=== PATIENT | male | born 1945 | race Caucasian/White ===

== ENCOUNTER → 2017-08-12 09:39 | Outpatient (CLI) | payer MEDICARE, OTHER, SELFPAY ==
[2017-08-12 09:50] LABS: Microscopic, Urine URINE MICROSCOPIC (MICROSCOPIC)
[2017-08-12 10:15] LABS: Appearance,Urine CLEAR (Clear); Bilirubin,Urine Negative (Negative); Blood, Urine Negative (Negative); Color,Urine YELLOW (Yellow); Glucose,Urine (UA) Negative (Negative); Ketones,Urine Negative (Negative); Leukocyte Esterase,Urine Negative (Negative); Nitrate,Urine Negative (Negative); PH,Urine 5.5 (5.0-8.5); Protein,Urine Negative (Negative); Specific Gravity, Urine 1.015 (1.005-1.030); Urobilinogen,Urine 0.2 EU/dl (0.2)
[2017-08-12 10:19] LABS: Basophils # 0.1 K/mm3 (0-0.2); Basophils % 1.4 % (0.1-2.0); Eosinophils # 0.1 K/mm3 (0.0-0.4); Eosinophils % 2.3 % (0.1-12.0); Hematocrit 45.5 % (42.0-52.0); Hemoglobin 14.6 g/dL (14.1-18.0); Lymphocytes % 28.5 K/mm3 (10-50); Mean Corpuscular HGB Conc 32.1 g/dL (31.8-35.4); Mean Corpuscular Hemoglobin 31.2 pg (27.0-31.2); Mean Corpuscular Volume 96.9 fl (80-94); Mean Platelet Volume 8.3 fl (7.4-10.4); Monocytes # 0.3 K/mm3 (0.1-1.0); Monocytes % 7.2 % (1.7-9.3); Neutrophils # 2.2 K/mm3 (1.8-7.8); Neutrophils % 60.7 % (37.0-80.0); Platelet Count 278 K/mm3 (142-424); Red Blood Count 4.69 M/mm3 (4.60-6.20); Red Cell Distribution Width 12.9 % (11.5-17.5); White Blood Count 3.6 K/mm3 (4.8-10.8)
--- NOTE | 2017-08-12 10:19 | XR_ITS ---
XR chest 2V HISTORY: Current smoker ITS.REASON: PRE-OP ORDERING PHYSICIAN: Fco Moreno MD PATIENT AGE: 72 years COMPARISON: None FINDINGS: The cardiomediastinal silhouette and pulmonary vascularity are within normal limits. The lungs are clear without infiltrates, suspicious nodules, or pleural effusions. No acute bony abnormalities. IMPRESSION: Negative chest, no acute finding
[2017-08-12 10:20] LABS: Bacteria,Urine Trace /lpf; Squamous Epithelial Cell,Urine Occasional #/hpf (0-5)
[2017-08-12 10:26] LABS: Activated Partial Thrombo Time 25.6 seconds (23.6-34.0); Hemoglobin A1C 5.3 % (0.0-7.0); INR 1.01 (0.9-1.1); Prothrombin Time 10.9 seconds (9.4-11.8)
[2017-08-12 10:57] LABS: Anion Gap 12.3 mEq/L (5-15); Blood Urea Nitrogen 15 mg/dL (7-18); Carbon Dioxide 28 mmol/L (21.0-32.0); Chloride 103 mmol/L (98-107); Creatinine,Serum 1.03 mg/dL (0.70-1.30); Estimated Glomerular Filt Rate 71 ml/min (>60); GFR (African American) 85 ML/MIN (>60); Glucose 99 mg/dL (74-106); Potassium 4.3 mmoL/L (3.5-5.1); Sodium 139 mmol/L (136-145)
[2017-08-13 19:24] LABS: PSA, Free 0.66 ng/mL; Prostate Specific Ag 4.2 ng/mL (0.0-4.0)
== END ==
PROVIDERS: Visit Provider Family Medicine
DX: Z01.818 Encounter for other preprocedural examination (principal); Z79.01 Long term (current) use of anticoagulants; Z79.899 Other long term (current) drug therapy; R97.20 Elevated prostate specific antigen [PSA]
CPT/HCPCS: 36415; 71046; 80048; 81001; 83036; 84153; 84154; 85025; 85610; 85730; 93005

== ENCOUNTER → 2017-08-24 12:20 | Outpatient (CLI) | payer MEDICARE, OTHER, SELFPAY ==
--- NOTE | 2017-08-24 12:25 | CA_ITS ---
PROCEDURE: 2-D M-mode and color Doppler study INDICATIONS FOR THE TEST: Chest pain COPD Heart Murmur Tobacco Smoking Palpitations Fatigue Syncope Edema Hypertension Diabetes Mellitus Rheumatic Fever SOB PINO+Obesity Hyperlipidemia+ Family History HD Additional History LBBB, pre-op clearance total hip replacement right side scheduled for 08/30/17 PATIENT INFORMATION HEIGHT: 70 WEIGHT: 178 GENDER: Male B/P:124/82 2-D/M-MODE INTERPRETATION: 2-D MEASUREMENTS OBSERVED VALUES IN CMS Right Ventricular Dimension (RVDd) 1.5 Interventricular Septum (Thickness)(IVsd) 0.9 Left Ventricular Internal Dimensions(LVIDd) 5.0 Left Ventricular Posterior Wall (Thickness)(LVPWd) 0.9 Aortic Root 3.4 Aortic Cusp Separation 2.3 Left Atrial Dimensions (LAD) 3.3 2D 1. Left atrium is mildly enlarged, left ventricle is normal size, mild concentric left ventricular hypertrophy, visually estimated ejection fraction of 55%, there is abnormal septal motion. 2. The right atrium and right ventricle are normal size and contractility. 3. The aortic valve is minimally thickened and fibrosed. 4. The mitral and tricuspid valve are grossly normal. 5. The pulmonic valve is poorly visualized. 6. No significant pericardial effusion noted. DOPPLER INTERROGATION: Doppler interrogation of the aortic, mitral and tricuspid valvular presence of mild mitral and tricuspid regurgitation, tricuspid and jet velocity is insufficient for calculation of the right ventricular systolic pressure, grade 1 diastolic dysfunction seen without tissue Doppler evidence of raised left atrial pressure. CONCLUSION: 1. Mildly enlarged left atrium, normal left ventricular size, mild concentric left ventricular hypertrophy, visually estimated ejection fraction 55% with no obvious regional wall motion abnormality, there is abnormal septal motion, grade 1 diastolic dysfunction seen without tissue Doppler evidence of raised left atrial pressure. 2. Mild mitral and tricuspid regurgitation 3. No significant pericardial effusion noted.
== END ==
PROVIDERS: PCP Family Medicine; Visit Provider Internal Medicine
DX: Z01.810 Encounter for preprocedural cardiovascular examination (principal); I44.7 Left bundle-branch block, unspecified; R94.31 Abnormal electrocardiogram [ECG] [EKG]
CPT/HCPCS: 93306

== ENCOUNTER → 2017-08-25 11:54 | Outpatient (CLI) | payer MEDICARE, OTHER, SELFPAY ==
--- NOTE | 2017-08-25 12:16 | NM_ITS ---
History and Indications: Hyperlipidemia, abnormal EKG Procedure: Patient received a 0.4 mg of Lexiscan, resting heart rate was 63 bpm resting blood pressure 153/85, with Lexiscan maximum heart rate achieved was 66 bpm which is less than 85% of the maximum predicted heart rate and a blood pressure 180/43. With Lexiscan patient complained of chest pressure and nausea and lightheadedness. Electrocardiogram: Resting electrocardiogram showed sinus bradycardia left bundle-branch block, with Lexiscan there is less than 1.[address] segment depression noted from the baseline EKG. The EKG portion of the Lexiscan Myoview is nondiagnostic Cardiac stress and resting SPECT images: Cardiac stress and rest SPECT images were obtained using technetium 99 Myoview 32.6 mCi at stress and 9.4 mCi at rest. Gated SPECT further analysis of segmental wall motion abnormality and calculation of the ejection fraction also done. Cardiac stress and rest SPECT images show a fixed defect anteroseptally with normal contractility in the gated SPECT is likely secondary to presence of intraventricular conduction delay left bundle-branch block rather than myocardial scarring. There is no reversible ischemia seen. Computer derived ejection fraction is 45% with no obvious regional wall motion abnormality. Conclusion: 1. The EKG portion of the Lexiscan Myoview is nondiagnostic. 2. No obvious scintigraphic evidence of reversible ischemia seen, a fixed perfusion defect anteroseptally is likely secondary to left bundle-branch block, no reversible ischemia seen. Computer derived ejection fraction is 45% with no obvious regional wall motion abnormality. Right ventricle is normal size and contractility.
--- NOTE | 2017-08-25 12:50 | HMH.ITSHM ---
ATORVASTATIN OMEPRAZOLE
== END ==
PROVIDERS: Family Provider Family Medicine; PCP Family Medicine; Visit Provider Internal Medicine
DX: Z01.818 Encounter for other preprocedural examination (principal); R06.02 Shortness of breath
CPT/HCPCS: 78452; 93017; A9502; J2785

== ENCOUNTER 2017-10-19 13:00 | Outpatient (RCR) | payer MEDICARE, OTHER, SELFPAY | END 2017-10-19 13:01 | disposition home or self-care (01) | LOC: PT 13:00 | PROVIDERS: Family Provider Family Medicine; PCP Family Medicine; Visit Provider Orthopaedic Surgery | DX: Z96.641 Presence of right artificial hip joint (principal) | CPT/HCPCS: 97110; 97163 ==

== ENCOUNTER → 2019-02-07 14:44 | Outpatient (POV) | payer MEDICARE, OTHER, SELFPAY | PROVIDERS: Visit Provider Dermatology | DX: Z00.00 Encounter for general adult medical examination without abnormal findings (principal) ==

== ENCOUNTER → 2020-10-11 10:19 | Outpatient (CLI) | payer MEDICARE, OTHER, SELFPAY | PROVIDERS: Visit Provider Internal Medicine Gastroenterology | DX: Z01.812 Encounter for preprocedural laboratory examination (principal); Z11.52 Encounter for screening for COVID-19; Z12.11 Encounter for screening for malignant neoplasm of colon | CPT/HCPCS: U0003 ==

== ENCOUNTER 2020-10-14 08:25 | Day surgery (SDC) | payer MEDICARE, OTHER, SELFPAY ==
[2020-10-08 13:45] VITALS: BMI 25.5
[2020-10-14 09:02] VITALS: BP 140/82; PULSE 75; RESP 18; TEMP 36.7; O2SAT 98
--- NOTE | 2020-10-14 09:35 | P.PCN_ITS ---
[facility] Procedure Note Procedure Note:: Colonoscopy Procedure Report: Colonoscopy with cold snare polypectomy Endoscopist: Tyson Wheeler II, MD Referring physician: Fco Moreno MD Date of Procedure: October 14, 2020 Equipment: Olympus 190 variable stiffness pediatric colonoscope Sedation: MAC sedation Indication: Mr. Gutiérrez is a 75-year-old gentleman who is here for screening colonoscopy. He did have a colonoscopy in October 2010 at which time he had 2 small polyps (non-adenomatous/mucosal prolapse polyps) which were removed (Dr. Marco A Browning M.D.). He also had some mild diverticulosis. He reports no abdominal pain, weight loss, change in his bowel habits or rectal bleeding. He reports no family history of colon cancer. Procedure: Prior to the procedure, a history and physical exam was performed, and patient's medications and allergies were reviewed. The risks, benefits and alternatives of the sedation and procedure were discussed with the patient. All questions were answered and informed consent was obtained. The patient was brought to the procedure room. Patient identification and proposed procedure were verified by the physician and the nurse. The patient was placed in a left lateral decubitus position and the scope was passed under direct vision. Throughout the procedure, the patient's blood pressure, pulse, and oxygen saturations were monitored continuously. The colonoscopy was accomplished without difficulty. The patient tolerated the procedure well. Findings: On digital rectal examination there was normal rectal tone. There were no external hemorrhoids. The prostate was 2+, smooth, soft, symmetric without nodules. The colonoscope was introduced through the anal canal to the rectum and advanced to the cecum. The ileocecal valve and appendiceal orifice were identified. The scope was advanced a short distance into the ileum which appeared grossly normal. The scope was then withdrawn into the colon. There were 7 colon polyps. These polyps were removed via cold snare polypectomy (ascending x1, transverse x4 and descending x2). The remaining cecum, ascending and transverse colon and mucosa were grossly normal. There were scattered diverticuli throughout the descending and sigmoid colon (LEFT colon). The rectum itself was normal. Upon retroflexion within the rectum there were grade 1-2 internal hemorrhoids. The preparation was excellent throughout with [place] Preparation Score of 9. The cecal time was 12 minutes. Impression: 1. Colonic polyps x7 2. Left-sided diverticulosis 3. Grade 1-2 internal hemorrhoids Plan: I will follow up the polyp pathology and recommend repeat colonoscopy again in 3 years based upon the polyp histology. I would encourage bulking fiber supplementation on a long-term daily maintenance basis.
--- NOTE | 2020-10-14 09:43 | HMH.ANESCL ---
[facility] Anesthesia Checklist - Structural Data Admitted From: Home Planned Operative Procedure/s: colonoscopy Consent for Planned Operative Procedure(s) Verified: Yes - Airway Assessment C-Spine Mobility Assessed: Yes TMJ Mobility Assessed: Yes Dentition: Good Dentition - Neurological Assessment Level of Consciousness: Awake, Alert, Appropriate - Anesthesia Plan Anesthesia Risk discussed: Yes Anesthesia Plan: Verified ASA Class: II Anesthesia Type: MAC [facility] History I have reviewed the patient's past medical history: Yes Medical History: Reports:: Gastroesophageal Reflux Disease(GERD), Hyperlipidemia Denies:: Cancer, Diabetes Mellitus Type 1, Diabetes Mellitus Type 2, MRSA, Seizures *Have you ever received a pneumonia vaccine?: Yes *Have you received a flu vaccine this season?: Yes Anesthesia experience/problems:: none Laterality Cases: Right: Total Hip Replacement Other Surgeries: Yes: Cancer Surgery, Colonoscopy Amputation: No Fractures: No - *Social History Last grade of school completed: High school graduate Smoking Status: Never smoker Alcohol Intake: never Substance Use Type: denies use *Occupational Status:: retired *Travel in the last 8 weeks: Inside the [facility] Family Hx:: Hypertension
[2020-10-14 10:05] VITALS: BP 107/67; PULSE 84; RESP 12; TEMP 36.4; O2SAT 96
[2020-10-14 10:15] VITALS: BP 108/59; PULSE 67; RESP 16; O2SAT 96
[2020-10-14 10:25] VITALS: BP 116/71; PULSE 70; RESP 16; O2SAT 99
[2020-10-14 10:35] VITALS: BP 124/81; PULSE 64; RESP 16; TEMP 36.4; O2SAT 100
[2020-10-14 13:30] VITALS: O2SAT 97
== END 2020-10-14 10:46 | disposition home or self-care (01) ==
PROVIDERS: PCP Family Medicine; Visit Provider Internal Medicine Gastroenterology
PROC: 0DJD8ZZ Inspection of Lower Intestinal Tract, Via Natural or Artificial Opening Endoscopic (ICD-10-PCS; CPT 45378; principal; 2020-10-14 09:30)
DX: Z12.11 Encounter for screening for malignant neoplasm of colon (principal); Z86.010 Personal history of colon polyps; Z87.19 Personal history of other diseases of the digestive system; K63.5 Polyp of colon; K57.30 Diverticulosis of large intestine without perforation or abscess without bleeding; K64.0 First degree hemorrhoids; E78.5 Hyperlipidemia, unspecified; K21.9 Gastro-esophageal reflux disease without esophagitis; Z79.899 Other long term (current) drug therapy
CPT/HCPCS: 45385; 88305

== ENCOUNTER → 2021-03-25 10:16 | Outpatient (POV) | payer MEDICARE, OTHER, SELFPAY | PROVIDERS: Visit Provider Dermatology | DX: Z00.00 Encounter for general adult medical examination without abnormal findings (principal) ==

== ENCOUNTER 2021-06-29 11:40 | Emergency (ER) | payer MEDICARE, SELFPAY ==
[2021-06-29 11:53] VITALS: BP 140/88; PULSE 81; RESP 20; TEMP 36.9; O2SAT 99; BMI 25.8
--- NOTE | 2021-06-29 11:58 | HMH.EDUTC ---
[facility] [place] Clinical Impression: Acute bronchitis Qualifiers: Bronchitis organism: unspecified organism Qualified Code(s): J20.9 - Acute bronchitis, unspecified Acute sinusitis Qualifiers: Sinusitis location: maxillary Recurrence: non-recurrent Qualified Code(s): J01.00 - Acute maxillary sinusitis, unspecified Disposition: Home, Self-Care Condition on Discharge: Good Instructions: DI for Sinusitis Additional Instructions: Start antibiotic patient to take as ordered for a full length of time even if you feel better. Sinus infections do not get better overnight. It may take 2-3 days to notice much improvement so be sure to use conservative measures as discussed for symptoms. Flonase 1 spray each nostril daily to help with nasal congestion, sinus and ear pressure/information Increase fluids Humidifier/vaporizer as needed Tylenol and ibuprofen as needed for fever or pain. If symptoms do not improve or get worse return or be seen in the ER Follow-up with primary care this week Prescriptions: Fluticasone Propionate [Flonase 50mcg nasal spray 16gm] 1 spr NS DAILY 14 Days #9.9 ml Transmission Status: Pending to [facility] predniSONE [Prednisone 20mg Tab] 20 mg PO BID #10 tab Transmission Status: Pending to [facility] Azithromycin [Zithromax 250mg tab] 250 mg PO DIRECTED #6 tab Transmission Status: [facility] Referrals: Fco Moreno MD [Primary Care Provider] - Time of Disposition: 12:04 Medical Decision Making - Nico Inquiry Pt receiving controlled substance: No [facility] [place] - General Chief complaint: [facility] Stated complaint: cough, congestion Time Seen by Provider: 06/29/21 11:58 Mode of Arrival: Ambulatory Source of Information: Patient Limitations: No Limitations - History of Present Illness Provider Complaint: 76 yr old male presents for coughing up green sputum, nasal congestion, decrease eating and drinking, weakness for 1 week - Related Data Home Medications Medication Instructions Recorded Confirmed atorvastatin 10 mg tablet 10 mg PO DAILY tab 08/23/17 10/08/20 omeprazole 20 mg capsule,delayed 20 mg PO DAILY cap 08/23/17 10/08/20 release Glucosam/Waqar-Msm1/C/Gutierrez/Bosw 1 each PO DAILY 10/08/20 10/08/20 [Osteo Bi-Flex Caplet] Saw/Vit E/Sod Mady/Lyc/Beta/Pyg 1 each PO DAILY 10/08/20 10/08/20 [Prostate Health Caplet] Previous Rx's Medication Instructions Recorded Azithromycin [Zithromax 250mg 250 mg PO DIRECTED #6 tab 06/29/21 tab] Fluticasone Propionate [Flonase 1 spr NS DAILY 14 Days #9.9 ml 06/29/21 50mcg nasal spray 16gm] predniSONE [Prednisone 20mg 20 mg PO BID #10 tab 06/29/21 Tab] Allergies Allergy/AdvReac Type Severity Reaction Status Date / Time No Known Allergies Allergy Verified 10/08/20 13:50 [facility] History - Hepatitis A Screen Attestation statement:: This patient has been screened for Hepatitis A risk factors. I have reviewed the patient's past medical history: Yes Medical History: Reports:: Gastroesophageal Reflux Disease(GERD), Hyperlipidemia Denies:: Cancer, Diabetes Mellitus Type 1, Diabetes Mellitus Type 2, MRSA, Seizures Laterality Cases: Right: Total Hip Replacement Other Surgeries: Yes: Cancer Surgery, Colonoscopy Amputation: No Fractures: No - Social History Smoking Status: Never smoker Alcohol Intake: never Substance Use Type: denies use Occupational Status: retired Family Hx:: Hypertension ROS Obtained: Yes Systems reviewed as appropriate & no additional complaints - Constitutional Constitutional: Reports system reviewed and no additional complaints, except as docu, Reports fatigue, Denies fever(s) - Eyes Eyes: Reports system reviewed and no additional complaints, except as docu, Denies dry eyes - ENT Ears, Nose, Mouth, and Throat: Reports system reviewed and no additional complaints, except as docu, Reports nasal congestion, Reports na
[2021-06-29 12:06] VITALS: BP 140/88; PULSE 89; RESP 16; TEMP 37.1; O2SAT 98
== END 2021-06-29 12:06 | disposition home or self-care (01) ==
PROVIDERS: Emergency Provider Nurse Practitioner Family; PCP Family Medicine
DX: J02.9 Acute pharyngitis, unspecified (principal); J01.00 Acute maxillary sinusitis, unspecified; K21.9 Gastro-esophageal reflux disease without esophagitis; Z79.51 Long term (current) use of inhaled steroids; Z79.52 Long term (current) use of systemic steroids; Z96.641 Presence of right artificial hip joint; Z82.49 Family history of ischemic heart disease and other diseases of the circulatory system
CPT/HCPCS: 99213; G0463

== ENCOUNTER → 2023-03-09 14:32 | Outpatient (CLI) | payer MEDICARE, SELFPAY ==
--- NOTE | 2023-03-09 14:36 | XR_ITS ---
FINAL REPORT CLINICAL HISTORY: COUGH FINDINGS: TWO-VIEW CHEST The heart size is normal. The mediastinum is normal. The lungs are clear. There is no pneumothorax. IMPRESSION: No acute cardiopulmonary process. Reviewed, Interpreted and Dictated by John Huntley MD Transcribed by Jacklyn Stoner Authenticated and [facility]
== END ==
PROVIDERS: PCP Family Medicine; Visit Provider Family Medicine
DX: R05.1 Acute cough (principal)
CPT/HCPCS: 71046

== ENCOUNTER 2024-11-20 16:28 | Outpatient (CLI) | payer MEDICARE, SELFPAY ==
--- OUTSIDE RECORDS SUMMARY | 2023-09-06 06:00 | XMS_ITS ---
Author Organization [facility] Address [address] [facility], [facility] [address] [facility] [address] [place] [id number] Care Team Providers Care Circular Ripsaw Operator Name Role Phone ColumbusWalter dietrichian Primary Care Provider Allergies No Known Allergies Results Component Value Reference Range Notes P-Comprehensive Metabolic Pa geena (CMP) Reviewed date:09/07/2023 02:07:05 PM Interpretation:gluc 103, Ca 8.2 Performing Lab: Notes/Report: Test performed by [facility] [address] [place] [address] , [address], [place] [address] Tj Leong MD, Hemp Fiber Taker Off CLIA: [id number] Sodium 139 135-145 mmol/L Potassium 4.3 3.5-5.3 [...] Interpretation:Normal Performing Lab: Notes/Report: Test performed by [facility] [address] [facility] , [address] , [place] [address] Tj Leong MD, Hemp Fiber Taker Off CLIA: [id number] Cholesterol 151 <200 mg/dL Triglycerides 94 <150 [...] Interpretation:6.61 Performing Lab: Notes/Report: Test performed by [facility] [address] [place] [address] , [address], [place] [address] Tj Leong MD, Hemp Fiber Taker Off CLIA: [id number] PSA 6.61 <4.00 ng/mL Please note this is an ultrasensitive PSA assay with a lower limit of detection of 0.014 ng/mL. This test is performed by the [employer] ECLIA methodology. Values obtained with different assay [...] Interpretation:Normal Performing Lab: Notes/Report: Test performed by [facility] [address] [place] [address] , [address], [place] [address] Tj Leong MD, Hemp Fiber Taker Off CLIA: [id number] TSH reflex to FT4 1.76 0.43-5.25 mU/L [...] Encounter Location Date Provider Diagnosis [facility] [address] [facility] [address] [facility] [address] [place] [id number] 09/06/2023 Fco Moreno Pure hypercholestero lemia E78.00 [...] Name:Fco Shaikh ry, 02/28/2025 10:00:00 AM, [address] [facility] 36 [facility], [address], [place], [id number], Progress Notes * EWELINA NEWBERRY DDOB:[birth year] (79 yo M)Acc No.[id number]:09/06/2023 Progress Notes Patient: Vicente EWELINA PICHARDO Provider: Reed Moreno M.D. :1945 A ge:78 Y S ex:Male Date:09/06/2023 Address:[address] [place] [address], [place] Subjective: * Chief Complaints: * 1 . [...] * Images: Billing Information: * Visit Code: 56690 Office Visit, Est Pt., Level 4. * Procedure Codes: G2211 Complex e/m visit add on. * Electronic signature of Crystal Moreno MD on 11/20/2024 at 04:30 PM EDT Sign off status: Pending * Provider: Reed Moreno M.D. Date: 09/06/2023 Generated for Kristofer hester/Dena/Revaitting on: 0 11/20/2024 04:30 PM EDT History and Physical Notes * HPI [...]
--- OUTSIDE RECORDS SUMMARY | 2024-02-29 06:00 | XMS_ITS ---
Author Organization [facility] Address [address] [facility] 36 [facility] [address] [place] [id number] Care Team Providers Care Oil Pipe Inspector Name Role Phone MarlandWalter dietrichian Primary Care Provider [phone] Allergies No Known Allergies Results Component Value Reference Range Notes P-PSA Free and Total Reviewed date:03/01/2024 11:52:49 AM Interpretation:9.74 Performing Lab: Notes/Report: Test performed by [facility] [address] , [address], [place] [address] Tj Leong MD, Steam Flattener CLIA: [id number] PSA 9.74 <4.00 ng/mL Please note this [...] Provider Diagnosis [facility] [address] [facility] [address] [place] [id number] 02/29/2024 Fco oMreno Gastroesophageal ref lux disease, esophagitis presence not [...] 02/28/2025 10:00:00 AM, [address] [facility], [address], [place], [id number], Progress Notes * EWELINA NEWBERRY DDOB:[birth year] (79 yo M)Acc No.[id number]:02/29/2024 Progress Notes Patient: EWELINA SHOOK Provider: Reed Moreno M.D. :1945 A ge:78 Y S ex:Male Date:02/29/2024 Address:[address] [place] [address], [facility] Subjective: * Chief Complaints: * 1 . [...] * Images: Billing Information: * Visit Code: 15365 Office Visit, Est Pt., Level 3. * Procedure Codes: G2211 Complex e/m visit add on. * Electronic signature of Crystal Moreno MD on 11/20/2024 at 04:30 PM EDT Sign off status: Pending * Provider: Reed Moreno M.D. Date: 1 05/01/2023 Generated for Kristofer hester/Dena/Revaitting on: 0 11/20/2024 [...]
--- OUTSIDE RECORDS SUMMARY | 2024-08-29 05:00 | XMS_ITS ---
Author Organization [facility] Address [address] [place] [id number] Care Team Providers Care Day Care Provider Name Role Phone Walter Morenoian Primary Care Provider [phone] Allergies No Known Allergies Results Component [...] Interpretation:Normal Performing Lab: Notes/Report: Test performed by [facility], [facility] [address] [place] [address] , [address], [place] [address] Tj Leong MD, Outside Operator CLIA: [id number] Sodium 141 135-145 mmol/L Potassium 4.3 3.5-5.3 [...] Interpretation:Normal Performing Lab: Notes/Report: Test performed by [facility] [address] , [address], [place] [address] Tj Leong MD, Outside Operator CLIA: [id number] Cholesterol 141 <200 mg/dL Triglycerides 106 <150 [...] Interpretation:Normal Performing Lab: Notes/Report: Test performed by [facility], [address] , [address], [place] [address] Tj Leong MD, Outside Operator CLIA: [id number] TSH reflex to FT4 1.36 0.43-5.25 mU/L [...] W/U Status Risk Notes Problem Allergic rhinitis (96436765) Allergic rhinitis, unspecified seasonality, unspecified trigger (J30.9) Active confirmed Problem Malignant neoplasm of prostate (619283768) Malignant neoplasm of prostate (C61) Active confirmed Vital Signs Blood pressure systolic 130 mm Hg 08/30/19 25 Blood pressure diastolic 80 mm Hg 025 Heart Rate 76 /min 08/29/2024 Height 70.50 in 08/29/2024 Weight 183.6 lbs 08/29/2024 BMI 25.97 kg/m2 08/29/2024 Encounters Encounter Location Date Provider Diagnosis [facility] [address], [place] [id number] 08/29/2024 Fco [place] Pure hypercholestero lemia E78.00 ; Gastroesophageal reflux disease, esophagitis presence not specified K21.9 ; Allergic rhinitis, unspecified seasonality, unspecified trigger J30.9 ; penitentiary use of drug Z79.899 ; Malignant neoplasm of prostate C61 and BMI 25.0-25.9,adult Z68.25 Assessments Encounter Date Diagnosis (ICD Code) Assessment Notes Treatment Notes Treatment Clinical Notes Section Notes 08/29/2024 Pure hypercholesterolemia (ICD-10 - E78.00) 08/29/2024 Gastroesophageal ref lux disease, esophagitis presence not specified (ICD-10 - K21.9) 08/29/2024 Allergic rhinitis, unspecified seasonality, unspecified trigger (ICD-10 - J30.9) 08/29/2024 penitentiary use of taye g (ICD-10 - Z79.899) [...] [address], [address], [place], [place], [id number], Progress Notes * EWELINA NEWBERRY DDOB:[birth year] (79 yo M)Acc No.[id number]:08/29/2024 Progress Notes Patient: EWELINA SHOOK Provider: Reed Moreno M.D. :1945 A ge:79 Y S ex:Male Date:08/29/2024 Address:[address] [place] [address], [facility] Subjective: * Chief Complaints: * 1 . [...] of prostate - C61 6 . B [place] 25.0-25.9,adult - Z68.25 Plan: * Treatment: Value [...] 10 MG, 1 tablet, Orally, Once a day.??4.?watermelon inspector use of drug?LAB: CBC Venipuncture (in house) [...] G 2211 Complex e/[place], [address] CBC WITH AUTO DIFF, 1036F TOBACCO NON-USER, G8420 BMI<30 AND >=22 CALC & DOCU, G8783 BP SCR PRFRM RCMDD DEFIND SCR INTVL, G8752 MOST RECENT SYSTOLIC BP < 140MM HG, G8754 MOST RECENT DIASTOLIC BP < 90MM HG * Follow Up: 6 Months * Images: Billing Information: * Visit Code: 41748 Office Visit, Est Pt., Level 4. * Procedure Codes: G2211 Complex e/[place]. [address] CBC WITH AUTO DIFF. 1036F TOBACCO NON-USER. [...] 08/29/2024 Generated for Kristofer hester/Dena/Revaitting on: 0 11/20/2024 [...]
--- OUTSIDE RECORDS SUMMARY | 2024-11-20 16:31 | XMS_ITS | Patient Health Record ---
Author Organization [facility] Address [address] [facility] [address] [facility] [address] [place] [id number] Care Team Providers Care Continuous Improvement Intern Name Role Phone Waucoma Fco Primary Care Provider [phone] Allergies No Known Allergies Results Component Value Reference Range Notes P-PSA Free and Total Reviewed date:03/01/2024 11:52:49 AM Interpretation:9.74 Performing Lab: Notes/Report: Test performed by [facility] [address] , [address], [place] [address] Tj Leong MD, National Sales Manager CLIA: [id number] PSA 9.74 <4.00 ng/mL Please note this is an ultrasensitive PSA assay with a lower limit of detection of 0.014 ng/mL. This test is performed by the [employer] ECLIA methodology. Values obtained with different assay [...] 20% > / = 25.01% 5% 9% CBC Venipuncture (in house) Reviewed date:08/29/2024 10:27:15 [...] Interpretation:Normal Performing Lab: Notes/Report: Test performed by [facility] [address] [place] [address] , [address], [place] [address] Tj Leong MD, National Sales Manager CLIA: [id number] Sodium 141 135-145 mmol/L Potassium 4.3 3.5-5.3 [...] Interpretation:Normal Performing Lab: Notes/Report: Test performed by [facility] [address] [place] [address] , [address], [place] [address] Tj Leong MD, National Sales Manager CLIA: [id number] Cholesterol 141 <200 mg/dL Triglycerides 106 <150 [...] Interpretation:Normal Performing Lab: Notes/Report: Test performed by [facility], [address] , [address], [place] [address] Tj Leong MD, National Sales Manager CLIA: [id number] TSH reflex to FT4 1.36 0.43-5.25 mU/L Reason For Referral Diagnosis 1 Elevated PSA (R97.20 ) Ref[facility] Referring Provider First Name Fco Referring Provider Last Name Josh Referring Provider Speciality Family Pra ctice Referred Provider Deandre Green Referred Provider Specialty Urology General Notes Lo Nicole 024 9:19:13 AM > faxed referral to Dr. Green's office Referral Priority Routine Medications Medication SIG (Take, Route, Frequency, Duration) Notes Start Date End Date Status Vitamin C 250 MG 1 tablet Orally Once a day; Duration: 30 day(s) Active Osteo Bi-Flex One Per Day - as directed Orally Active Meclizine HCl 12.5 MG 1 tablet Orally every 8 hrs As needed 11/20/2024 Active Sildenafil Citrate 20 MG 1to 5 [...] once a day; Duration: 90 days Active Immunizations Vaccine Route Administration Date Status Comme nts COVID 19 Dorothea Unknown 05/22/2020 Administered COVID 19 [place]othe[place] Unknown 05/07/2021 Administered Fluzone High Dose (65yr and older) IM Intramuscular 01/01/2018 Administered Fluzone High Dose (65yr and older) IM Intramuscular 12/27/2018 Administered Fluzone High Dose (65yr and older) IM Intramuscular 01/16/2020 Administered Fluzone High Dose (65yr and older) IM Intramuscular 02/13/2021 Administered given [facility] Fluzone High Dose (65yr and older) IM Intramuscular 02/13/2022 Administered PNEUMOVAX 23 VACCINE IM Intramuscular 04/20/2017 Administered Prevnar (PCV13) IM Intramuscular 12/27/2018 Administered Prevnar (PCV20) IM Intramuscular 02/13/2022 Administered Tetanus Tdap-Adacel (over 7yrs) IM Intramuscular 05/18/2018 Administered Social History Tobacco Use: Social History Observation Description Date Details (start date - stop date) Never Smoker NA - NA CURRENT TOBACCO USE: Question Answer Notes Are you a: never smoker Problems Problem Type SNOMED Code ICD Code Onset Dates Problem Status W/U Status Risk Notes Problem Memory loss (22523255) Memory loss (R41.3) Active confirmed Problem Malignant neoplasm o f prostate (673911766) Malignant neoplasm of prostate (C61) Active confirmed Problem Primary insomnia (9746858) Primary insomnia (F51.01) Active confirmed Problem Bilateral tinnitus (4387994259481) Tinnitus of both ears (H93.13) Active confirmed Problem Gastroesophageal reflux disease (562511298) Gastroesophageal reflux disease, esophagitis presence not specified (K21.9) Active confirmed Problem Erectile dysfunction (disorder) (796131183) Erectile dysfunction, unspecified erectile dysfunction type (N52.9) Active confirmed Problem Pure hypercholesterolemia (194389388) Pure hypercholesterolemia (E78.00) Active confirmed Problem Hearing loss (95612762) Hearing loss, unspecified hearing loss type, unspecified laterality (H91.90) Active confirmed Problem Arthritis of right hip (8394777165067353) Arthritis of right hip (M16.11) Active confirmed Problem Allergic rhinitis (31165247) Allergic rhinitis, unspecified seasonality, unspecified trigger (J30.9) Active confirmed Vital Signs Heart Rate 112 /min 11/20/2024 Blood pressure diastolic 82 mm Hg 11/20/2024 Height 70.50 in 11/20/2024 Blood pressure systolic 134 mm Hg 11/20/2024 Weight 184.6 lbs 11/20/2024 BMI 26.11 kg/m2 11/20/2024 Encounters Encounter Location Date Provider Diagnosis [facility] [address] [facility] [address] [place] [id number] 02/29/2024 Fco Moreno Gastroesophageal ref lux disease, esophagitis presence not specified K21.9 ; Elevated PSA R97.20 and Prostate cancer screening Z12.5 [facility] [address] [facility] [address] [place], [place] [id number] 08/29/2024 Fco Waucoma Pure hypercholestero lemia E78.00 ; Gastroesophageal reflux disease, esophagitis presence not specified K21.9 ; Allergic rhinitis, unspecified seasonality, unspecified trigger J30.9 ; custodial use of drug Z79.899 ; Malignant neoplasm of prostate C61 and BMI 25.0-25.9,adult Z68.25 [facility] [address] [facility] [address] [place], [place] [id number] 11/20/2024 Fco Waucoma Dizziness R42 and Natty mbar back pain M54.50 [facility] [address] [facility] [address] [place], [place] [id number] 03/01/2024 Fco Waucoma Elevated PSA R97.20 [facility] [address] [facility] [address] [place], [place] [id number] 10/24/2024 Fco Waucoma Allergic rhinitis, unspecified seasonality, unspecified trigger J30.9 Assessments Encounter Date Diagnosis (ICD Code) Assessment Notes Treatment Notes Treatment Clinical Notes Section Notes 02/29/2024 Gastroesophageal ref lux disease, esophagitis presence not specified (ICD-10 - K21.9) 02/29/2024 Elevated PSA (ICD-10 - R97.20) 03/01/2024 Elevated PSA (ICD-10 - R97.20) 08/29/2024 Gastroesophageal ref lux disease, esophagitis presence not specified (ICD-10 - K21.9) 08/29/2024 Pure hypercholesterolemia (ICD-10 - E78.00) 10/24/2024 Allergic rhinitis, unspecified seasonality, unspecified trigger (ICD-10 - J30.9) 11/20/2024 Dizziness (ICD-10 - R42) 11/20/2024 Lumbar back pain (IC D-10 - M54.50) 08/29/2024 Allergic rhinitis, unspecified seasonality, unspecified trigger (ICD-10 - J30.9) 02/29/2024 Prostate cancer screening (ICD-10 - Z12.5) 08/29/2024 custodial use of taye g (ICD-10 - Z79.899) 08/29/2024 Malignant neoplasm o f prostate (ICD-10 - C61) 08/29/2024 BMI 25.0-25.9,adult (ICD-10 - Z68.25) Plan Of Treatment Pending Test Test Name Order Date Urinalysis - Inhouse 11/20/2024 H-TSH 11/20/2024 H-CBC 11/20/2024 H-CMP 11/20/2024 H-PHOS 11/20/2024 H-Magnesium 11/20/2024 Next Appt Details Provider Name:Fco Shaikh ry, 02/28/2025 10:00:00 AM, [address], [address], [place], [place], [id number], Insurance Providers Payer Name Payer Address Payer Phone Subscriber Number Group Number Insured Name Patient Relationship to Insured Coverage Start Date Coverage End Date [employer] (MEDICAR E) [address] [address] [place] [address] [phone] [id number] EWELINA NEWBERRY Self - patient is the insured Medical (General) History Medical History History ICD Code Hyperlipidemia Esophageal Reflux Basal Cell on Scalp, 2013 prostate cancer, Dx 2024, s/p radiation and hormone treatment with Dr. Green Surgical History Surgery Date(Month/Year) Skin Cancer, Scalp Colonoscopy 10/27/2010 Broken Rib x 3 02/2017 RT Hip Replacement 08/30/2017 Hospitalization History Reason Date(Month/Year)
[2024-11-20 17:17] LABS: Hematocrit 38.9 % (42.0-52.0); Hemoglobin 13.4 g/dL (14.1-18.0); Immature Granulocytes % 0.2 %; Mean Corpuscular HGB Conc 34.4 g/dL (31.8-35.4); Mean Corpuscular Hemoglobin 32.4 pg (27.0-31.2); Mean Corpuscular Volume 94.0 fl (80-94); Nucleated Red Blood Cells % 0 %; Platelet Count 179 K/mm3 (142-424); Red Blood Count 4.14 M/mm3 (4.60-6.20); Red Cell Distribution Width-SD 40.4 fL; White Blood Count 5.4 K/mm3 (4.8-10.8)
[2024-11-20 19:12] LABS: Alanine Aminotransferase 114 U/L (12-78); Albumin Level 4.0 g/dl (3.5-5.0); Albumin/Globulin Ratio 1.4 (1.1-1.8); Alkaline Phosphatase 284 U/L (38-126); Anion Gap 15.6 mEq/L (5-15); Aspartate Amino Transferase 107 U/L (17-59); Bilirubin,Total 1.7 mg/dl (0.2-1.3); Blood Urea Nitrogen 14 mg/dl (9-20); Calcium 9.0 mg/dl (8.4-10.2); Carbon Dioxide 24 mmol/L (22.0-30.0); Chloride 93 mmol/L (98-107); Creatinine,Serum 1.00 mg/dl (0.66-1.25); Estimated Glomerular Filt Rate 72 ml/min (>60); GFR (African American) 87 ML/MIN (>60); Globulin 2.8 g/dL (1.3-3.2); Glucose 96 mg/dl (74-100); Magnesium 1.7 mg/dl (1.6-2.3); Potassium 4.6 mmoL/L (3.5-5.1); Sodium 128 mmol/L (136-145); Total Protein,Serum 6.8 g/dl (6.3-8.2)
[2024-11-20 19:25] LABS: Phosphorous 2.0 mg/dl (2.5-4.5)
[2024-11-20 19:43] LABS: Thyroid Stimulating Hormone 1.11 uIU/mL (0.465-4.68)
== END 2024-11-20 23:59 | disposition home or self-care (01) ==
PROVIDERS: PCP Family Medicine; Visit Provider Family Medicine
DX: R42 Dizziness and giddiness (principal)
CPT/HCPCS: 36415; 80053; 83735; 84100; 84443; 85025

== ENCOUNTER 2024-11-23 09:50 | Outpatient (CLI) | payer MEDICARE, SELFPAY ==
--- OUTSIDE RECORDS SUMMARY | 2023-09-06 06:00 | XMS_ITS ---
[facility] Address [address] [place] [id number] Care Team Providers Care Provider Network Analyst Name Role Phone AubreyWalter dietrichian Primary Care Provider [phone] Allergies No Known Allergies Results Component Value Reference Range Notes P-Comprehensive Metabolic Pa geena (CMP) Reviewed date:09/07/2023 02:07:05 PM Interpretation:gluc 103, Ca 8.2 Performing Lab: Notes/Report: Test performed by [facility] [address] [place] [address] , [address], [place] [address] Tj Leong MD, Super[employer] CLIA: [id number] Sodium 139 135-145 mmol/L Potassium 4.3 3.5-5.3 mmol/L Chloride 103 97-108 mmol/L CO2 26 22-32 mmol/L Glucose 103 65-99 mg/dL BUN 18 8-23 mg/dL Creatinine 1.08 0.70-1.30 mg/dL Calcium 8.2 8.6-10.4 mg/dL eGFR by Creatinine 69 >59 mL/min/1.73m2 Protein 6.6 6.0-8.3 g/dL Albumin 4.3 3.5-5.3 g/dL Alkaline Phosphatase 87 40-129 IU/L ALT (SGPT) 14 <5-55 IU/L AST (SGOT) 17 <5-46 IU/L Bilirubin, Total 0.8 <0.2-1.2 mg/dL A/G Ratio 1.9 1.1-2.5 mg/dL P-Lipid Panel Reviewed date:09/07/2023 02:07:05 PM Interpretation:Normal Performing Lab: Notes/Report: Test performed by [facility] [address] , [address] , [place] [address] Tj Leong MD, Supervisor [employer] CLIA: [id number] Cholesterol 151 <200 mg/dL Triglycerides 94 <150 mg/dL HDL Cholesterol 46 >39 mg/dL Cholesterol / HDL Ratio 3.28 0.00-4.99 Ratio Non-HDL Cholesterol 105 <130 mg/dL LDL Cholesterol (Calculation) 86 <130 mg/dL LDL Cholesterol Levels* Less than 100 mg/dL Optimal 100 to 129 mg/dL Near Optimal/ Above Optimal 130 to 159 mg/dL Borderline High 160 to 189 mg/dL High 190 mg/dL and above Very High * Categories as recommended by the 2004 ATPIII guidelines LDL/HDL Ratio 1.9 <3.3 Ratio LDL Cholesterol Patient History Test Date: 03/03/2023 LDL Results: 57 Units: mg/dL % Change: - Test Date: 09/06/2023 LDL Results: 86 Units: mg/dL % Change: +50% P-PSA Free and Total Reviewed date:09/07/2023 02:07:05 PM Interpretation:6.61 Performing Lab: Notes/Report: Test performed by [facility] [address] [place] [address] , [address], [place] [address] Tj Leong MD, Supervisor [employer] CLIA: [id number] PSA 6.61 <4.00 ng/mL Please note this is an ultrasensitive PSA assay with a lower limit of detection of 0.014 ng/mL. This test is performed by the [employer] ECLIA methodology. Values obtained with different assay methods or kits cannot be directly compared. PSA Free 0.85 This test is performed by the Mary ECLIA methodology. Values obtained with different assay methods or kits cannot be directly compared. fPSA, PCT 12.86 PROBABILITY OF PROSTATE CANCER (For Men with Non-suspicious MAICO Results and PSA Between 4 and 10 ng/ml, by Patient Age) % Free PSA PATIENT AGE 50 to 64 Years 65 to 75 Years 0.00 to 10.00% 56% 55% 10.01 to 15.00% 24% 35% 15.01 to 20.00% 17% 23% 20.01 to 25.00% 10% 20% > / = 25.01% 5% 9% P-TSH reflex to FT4 Reviewed date:09/07/2023 02:07:05 PM Interpretation:Normal Performing Lab: Notes/Report: Test performed by [facility] [address] [place] [address] , [address], [place] [address] Tj Leong MD, Super[employer] CLIA: [id number] TSH reflex to FT4 1.76 0.43-5.25 mU/L REASON FOR VISIT 6 months Medications Medication SIG (Take, Route, Frequency, Duration) Notes Start Date End Date Status Omeprazole Magnesium 20 MG 1 tab(s) oral ly once a day Active Sildenafil Citrate 20 MG 1to 5 tab(s) or ally once a day as needed 02/13/2021 Active Osteo Bi-Flex One Per Day - as directed Orally Active Atorvastatin Calcium 10 MG 1 tab(s) oral ly once a day Active Social History Tobacco Use: Social History Observation Description Date Details (start date - stop date) Never Smoker NA - NA CURRENT TOBACCO USE: Question Answer Notes Are you a: never smoker Vital Signs Blood pressure systolic 122 mm Hg 09/06/19 Blood pressure diastolic 70 mm Hg 024 Heart Rate 66 /min 09/06/2023 Height 70.50 in 09/06/2023 Weight 183.8 lbs 09/06/2023 BMI 26.00 kg/m2 09/06/2023 Encounters Encounter Location Date Provider Diagnosis [facility] [address] [facility] [address] [place] [id number] 09/06/2023 Fco Moreno Pure hypercholestero lemia E78.00 ; Elevated PSA R97.20 and Elevated LFTs R79.89 Assessments Encounter Date Diagnosis (ICD Code) Assessment Notes Treatment Notes Treatment Clinical Notes Section Notes 09/06/2023 Pure hypercholesterolemia (ICD-10 - E78.00) 09/06/2023 Elevated PSA (ICD-10 - R97.20) 09/06/2023 Elevated LFTs (ICD-1 0 - R79.89) Plan Of Treatment Medication Medication Name Sig Start Date Stop Date Notes Atorvastatin Calcium 10 MG 1 tab(s) orally once a day Next Appt Details Follow Up: 6 Months, Reason: Provider Name:Fco Shaikh ry, 02/28/2025 10:00:00 AM, [address] [facility] [address], [address], [place], [id number], Progress Notes * EWELINA NEWBERRY DDOB:[birth year] (79 yo M)Acc No.[id number]:09/06/2023 Progress Notes Patient: Vicente EWELINA PICHARDO Provider: Reed Moreno M.D. :1945 A ge:78 Y S ex:Male Date:09/06/2023 Address:[address] [place] [address], [id number] Subjective: * Chief Complaints: * 1 . 6 months. * HPI: C ardiology: 78 year old male presents with c/o Hyperlipidemia P t here for 6 mo f/u, states he is doing well and does not have any concerns. Pt is fasting today. * ROS: D ERMATOLOGY: no R fawn. n o H liu. G ASTROENTEROLOGY: no N ausea. n o V omiting. U ROLOGY: no D ifficulty urinating. n o B lood in urine. * Medical History: H yperlipidemia, Esophageal Reflux, Basal Cell on Scalp, 2013, PSA 5.0, 04/2017. * Surgical History: S kin Cancer, Scalp , Colonoscopy 10/27/2010, Broken Rib x 3 02/2017, RT Hip Replacement 08/30/2017. * Hospitalization/Major Diagno stic Procedure: D enies Past Hospitalization. * Family History: F ather: 82 yrs, family history unknown . M other: 39 yrs, family history unknown . C christofer: alive, diagnosed with Diabetes. S franky: diagnosed with Hypertension. 4 brother(s) , 1 sister(s) . 1 son(s) , 1 daughter(s) . . * Social History: C URRENT TOBACCO USE: No A re you a: n ever smoker. C affeine: yes, Coffee. Past smoking status: never smoked. * Medications: T aking Osteo Bi-Flex One Per Day - Tablet as directed Orally , Taking Omeprazole Magnesium 20 MG Tablet Delayed Release 1 tab(s) orally once a day , Taking Sildenafil Citrate 20 MG Tablet 1to 5 tab(s) orally once a day as needed , Taking Atorvastatin Calcium 10 MG Tablet 1 tab(s) orally once a day , Discontinued Zithromax Z-Ryan 250 MG Tablet as directed Orally once daily , Medication List reviewed and reconciled with the patient * Allergies: N .K.D.A. Objective: * Vitals: W t:183.8, Temp:98.1, BP:122/70, HR:66, Nurse:parker, Ht: 70.50, BMI:26.00. * Examination: C ardiology: General Appearance: p leasant, NAD. H EENT: u nremarkable. H eart sounds: R RR, normal S1, S2. L ungs: c lear, no rales or wheezes.?Extremities: n o leg edema. Assessment: * Assessment: 1. P ure hypercholesterolemia - E78.00 (Primary) 2 . E levated PSA - R97.20? 3. E levated LFTs - R79.89 Plan: * Treatment: Value Reference Range A /G Ratio 1.9 1.1-2.5 - mg/dL * A lbumin 4.3 3.5-5.3 - g/dL * A lkaline Phosphatase 87 40-129 - IU/L * A LT (SGPT) 14 <5-55 - IU/L * A ST (SGOT) 17 <5-46 - IU/L * B ilirubin, Total 0.8 <0.2-1.2 - mg/dL * B UN 18 8-23 - mg/dL * C alcium 8.2 L 8.6-10.4 - mg/dL * C hloride 103 97-108 - mmol/L * C O2 26 22-32 - mmol/L * C reatinine 1.08 0.70-1.30 - mg/dL * G lucose 103 H 65-99 - mg/dL * P otassium 4.3 3.5-5.3 - mmol/L * S odium 139 135-145 - mmol/L * P rotein 6.6 6.0-8.3 - g/dL * e GFR by Creatinine 69 >59 - mL/min/1.73m2 * Giovanna Tang 09/07/2023 2:06: 53 PM >See phone encounter ?LAB: P-Lipid Panel (Collection Date & Time - 09/06/2023 09:10 AM)?Normal* Value Reference Range C holesterol / HDL Ratio 3.28 0.00-4.99 - Ratio * C holesterol 151 <200 - mg/dL * H DL Cholesterol 46 >39 - mg/dL * L DL Cholesterol (Calculation) 86 <130 - mg/d L * L DL/HDL Ratio 1.9 <3.3 - Ratio * N on-HDL Cholesterol 105 <130 - mg/dL * T riglycerides 94 <150 - mg/dL * Giovanna Tang 09/07/2023 2:06: 53 PM >See phone encounter ?LAB: P-TSH reflex to FT4 (Collection Date & Time - 09/06/2023 09:10 AM)? Normal* Value Reference Range T SH reflex to FT4 1.76 0.43-5.25 - mU/L * Giovanna Tang 09/07/2023 2:06: 53 PM >See phone encounter 2.?Elevated PSA?LAB: P-PSA Free and Total (Collection Date & Time - 09/06/2023 09:10 AM)? 6.61* Value Reference Range P SA 6.61 H <4.00 - ng/mL * P SA Free 0.85 - ng/mL * f PSA, PCT 12.86 - % * Giovanna Tang 09/07/2023 2:06: 53 PM >See phone encounter 3.?Elevated LFTs?LAB: P-Comprehensive Metabolic Panel (CMP) (Collection Date & Time - 09/06/2023 09:10 AM)?gluc 103, Ca 8.2* Value Reference Range A /G Ratio 1.9 1.1-2.5 - mg/dL * A lbumin 4.3 3.5-5.3 - g/dL * A lkaline Phosphatase 87 40-129 - IU/L * A LT (SGPT) 14 <5-55 - IU/L * A ST (SGOT) 17 <5-46 - IU/L * B ilirubin, Total 0.8 <0.2-1.2 - mg/dL * B UN 18 8-23 - mg/dL * C alcium 8.2 L 8.6-10.4 - mg/dL * C hloride 103 97-108 - mmol/L * C O2 26 22-32 - mmol/L * C reatinine 1.08 0.70-1.30 - mg/dL * G lucose 103 H 65-99 - mg/dL * P otassium 4.3 3.5-5.3 - mmol/L * S odium 139 135-145 - mmol/L * P rotein 6.6 6.0-8.3 - g/dL * e GFR by Creatinine 69 >59 - mL/min/1.73m2 * Giovanna Tang 09/07/2023 2:06: 53 PM >See phone encounter * Procedure Codes: G 2211 Complex e/m visit add on * Follow Up: 6 Months * Images: Billing Information: * Visit Code: 55240 Office Visit, Est Pt., Level 4. * Procedure Codes: G2211 Complex e/m visit add on. * Electronic signature of Crystal Moreno MD on 11/23/2024 at 09:56 AM EDT Sign off status: Pending * Provider: Reed Moreno M.D. Date: 09/06/2023 Generated for Kristofer hester/Dena/Revaitting on: 0 11/23/2024 09:56 AM EDT History and Physical Notes * HPI (History of Present Illness) Category Sub-Category Detail Notes Category Not es Cardiology Hyperlipidemia Pt here for 6 mo f/u, states he is doing well and does not have any concerns. Pt is fasting today Examination Category Sub-Category Detail Notes Category Not es Cardiology Lungs: clear, no rales or wheezes HEENT: unremarkable Heart sounds: RRR, normal S1, S2 Extremities: no leg edema General Appearance: pleasant, NAD
--- OUTSIDE RECORDS SUMMARY | 2024-02-29 06:00 | XMS_ITS ---
Author Organization [facility] Address [address]10 [facility] 36 [facility] [address] [place] [id number] Care Team Providers Care Emergency Department Clinician Name Role Phone JoshWalterFco Primary Care Provider Allergies No Known Allergies Results Component Value Reference Range Notes P-PSA Free and Total Reviewed date:03/01/2024 11:52:49 AM Interpretation:9.74 Performing Lab: Notes/Report: Test performed by [facility] [address] , [address], [place] [address] Tj Leong MD, Environmental Change Analyst CLIA: [id number] PSA 9.74 <4.00 ng/mL Please note this is an ultrasensitive PSA assay with a lower limit of detection of 0.014 ng/mL. This test is performed by the [employer] ECLIA methodology. Values obtained with different assay methods or kits cannot be directly compared. PSA Free 1.25 This test is performed by the [employer] ECLIA methodology. Values obtained with different assay methods or kits cannot be directly compared. fPSA, PCT 12.83 PROBABILITY OF PROSTATE CANCER (For Men with Non-suspicious MAICO Results and PSA Between 4 and 10 ng/ml, by Patient Age) % Free PSA PATIENT AGE 50 to 64 Years 65 to 75 Years 0.00 to 10.00% 56% 55% 10.01 to 15.00% 24% 35% 15.01 to 20.00% 17% 23% 20.01 to 25.00% 10% 20% > / = 25.01% 5% 9% REASON FOR VISIT 6 month check Medications Medication SIG (Take, Route, Frequency, Duration) Notes Start Date End Date Status Osteo Bi-Flex One Per Day - as directed Orally Active Vitamin C 250 MG 1 tablet Orally Once a day; Duration: 30 day(s) Active Esomeprazole Magnesium 40 MG 1 capsule before morning meal Orally Once a day; Duration: 90 days 02/29/2024 Active Atorvastatin Calcium 10 MG 1 tab(s) oral ly once a day; Duration: 90 days Active Sildenafil Citrate 20 MG 1to 5 tab(s) or ally once a day as needed 02/13/2021 Active Niacin 500 MG 1 tablet with food O rally Once a day; Duration: 30 day(s) Active Social History Tobacco Use: Social History Observation Description Date Details (start date - stop date) Never Smoker NA - NA CURRENT TOBACCO USE: Question Answer Notes Are you a: never smoker Vital Signs Blood pressure systolic 130 mm Hg 02/29/20 24 Blood pressure diastolic 70 mm Hg 024 Heart Rate 72 /min 02/29/2024 Height 70.50 in 02/29/2024 Weight 189 lbs 02/29/2024 BMI 26.73 kg/m2 02/29/2024 Encounters Encounter Location Date Provider Diagnosis [facility] [address] [facility] [address] [place] [id number] 02/29/2024 Fco Moreno Gastroesophageal ref lux disease, esophagitis presence not specified K21.9 ; Elevated PSA R97.20 and Prostate cancer screening Z12.5 Assessments Encounter Date Diagnosis (ICD Code) Assessment Notes Treatment Notes Treatment Clinical Notes Section Notes 02/29/2024 Gastroesophageal reflux disease, esophagitis presence not specified (ICD-10 - K21.9) 02/29/2024 Elevated PSA (ICD-10 - R97.20) 02/29/2024 Prostate cancer screening (ICD-10 - Z12.5) Plan Of Treatment Medication Medication Name Sig Start Date Stop Date Notes Esomeprazole Magnesium 40 MG 1 capsule b efore morning meal Orally Once a day; Duration: 90 days 02/29/2024 Omeprazole Magnesium 20 MG 1 tab(s) orally once a day Next Appt Details Follow Up: 6 Months fasting, Reason: Provider Name:Fco garcia, 02/28/2025 10:00:00 AM, [address] [facility], [address], [place], [id number], Progress Notes * EWELINA NEWBERRY DDOB:[birth year] (79 yo M)Acc No.[id number]:02/29/2024 Progress Notes Patient: EWELINA SHOOK Provider: Reed Moreno M.D. :1945 A ge:78 Y S ex:Male Date:02/29/2024 Address:[address] [place] [address], [facility] Subjective: * Chief Complaints: * 1 . 6 month check. * HPI: C ardiology: 78 year old male presents with c/o Hyperlipidemia P t here for 6 mo f/u, pt is fasting today. Pt states he is doing well and does not have any concerns. * ROS: D ERMATOLOGY: no R fawn. [...] 39 yrs, family history unknown . C hildren: alive, diagnosed with Diabetes. S iblings: diagnosed with Hypertension. 4 brother(s) , 1 sister(s) . 1 son(s) , 1 daughter(s) . . * Social History: C URRENT TOBACCO USE: No A re you a: n ever smoker. C affeine: yes, Coffee. Past smoking status: never smoked. * Medications: T aking Niacin 500 MG Tablet 1 tablet with food Orally Once a day , Taking Vitamin C 250 MG Tablet 1 tablet Orally Once a day , Taking Osteo Bi-Flex One Per Day - Tablet as directed Orally , Taking Omeprazole Magnesium 20 MG Tablet Delayed Release 1 tab(s) orally once a day , Taking Sildenafil Citrate 20 MG Tablet 1to 5 tab(s) orally once a day as needed , Taking Atorvastatin Calcium 10 MG Tablet 1 tab(s) orally once a day , Medication List reviewed and reconciled with the patient * Allergies: N .K.D.A. Objective: * Vitals: W t:189, Temp:98.0, BP:130/70, HR:72, Nurse:parker, Ht: 70.50, BMI:26.73. * Examination: C ardiology: General Appearance: p leasant, NAD. H EENT: u nremarkable. H eart sounds: R RR, normal S1, S2. L ungs: c lear, no rales or wheezes.?Extremities: n o leg edema. Assessment: * Assessment: 1. G astroesophageal reflux disease, esophagitis presence not specified - K21.9 (Primary) ? 2 . E levated PSA - R97.20 3 . P rostate cancer screening - Z12.5? Plan: * Treatment: 2. E levated PSA L AB: P-PSA Free and Total (Collection Date & Time - 02/29/2024 09:34 AM) 9 .74 Value Reference Range P SA 9.74 H <4.00 - ng/mL * P SA Free 1.25 - ng/mL * f PSA, PCT 12.83 - % * Giovanna Tang 03/01/2024 11:5 2:50 AM >See phone encounter 3.?Prostate cancer screening?LAB: P-PSA Free and Total (Collection Date & Time - 02/29/2024 09:34 AM)? 9.74* Value Reference Range P SA 9.74 H <4.00 - ng/mL * P SA Free 1.25 - ng/mL * f PSA, PCT 12.83 - % * Giovanna Tang 03/01/2024 11:5 2:50 AM >See phone encounter * Procedure Codes: G 2211 Complex e/m visit add on * Follow Up: 6 Months fasting * Images: Billing Information: * Visit Code: 57058 Office Visit, Est Pt., Level 3. * Procedure Codes: G2211 Complex e/m visit add on. * Electronic signature of Crystal Moreno MD on 11/23/2024 at 09:56 AM EDT Sign off status: Pending * Provider: Reed Moreno M.D. Date: 1 05/01/2023 Generated for Kristofer hester/Dena/Revaitting on: 0 11/23/2024 09:56 AM EDT History and Physical Notes * HPI (History of Present Illness) Category Sub-Category Detail Notes Category Not es Cardiology Hyperlipidemia Pt here for 6 mo f/u, pt is fasting today. Pt states he is doing well and does not have any concerns Examination Category Sub-Category Detail Notes Category Not es Cardiology Lungs: clear, no rales or wheezes HEENT: unremarkable Heart sounds: RRR, normal S1, S2 Extremities: no leg edema General Appearance: pleasant, NAD
--- OUTSIDE RECORDS SUMMARY | 2024-08-29 05:00 | XMS_ITS ---
Author Organization [facility] Address [address] [place] [phone] Care Team Providers Care Pmo Analyst Name Role Phone Walter Morenoian Primary Care Provider Allergies No Known Allergies Results Component Value Reference Range Notes CBC Venipuncture (in house) Reviewed date:08/29/2024 10:27:15 PM Interpretation: Performing Lab: Notes/Report: wbc 2.9 3.5 - 10 lymph 15.5% 15 - 50 mid 5.7% 2 - 15 gran 78.8% 35 - 80 rbc 4.33 3.5 - 5.5 hgb 14.0 11.5 - 16.5 hct 41.7 35 - 55 mcv 96.2 75 - 100 mch 32.3 25 - 35 mchc 33.6 31 - 38 platlet 232 100 - 400 P-Comprehensive Metabolic Pa geena (CMP) Reviewed date:08/31/2024 03:00:40 PM Interpretation:Normal Performing Lab: Notes/Report: Test performed by [facility] [address] [place] [address] , [address], [place] [address] Tj Leong MD, Oracle Database Manager CLIA: [id number] Sodium 141 135-145 mmol/L Potassium 4.3 3.5-5.3 mmol/L Chloride 105 97-108 mmol/L CO2 23 22-32 mmol/L Glucose 106 65-99 mg/dL BUN 19 8-23 mg/dL Creatinine 0.84 0.70-1.30 mg/dL Calcium 9.4 8.6-10.4 mg/dL eGFR by Creatinine 87 >59 mL/min/1.73m2 Protein 6.4 6.0-8.3 g/dL Albumin 4.3 3.5-5.3 g/dL Alkaline Phosphatase 126 40-129 IU/L ALT (SGPT) 24 <5-55 IU/L AST (SGOT) 22 <5-46 IU/L Bilirubin, Total 0.5 <0.2-1.2 mg/dL A/G Ratio 2.0 1.1-2.5 P-Lipid Panel Reviewed date:08/31/2024 03:00:41 PM Interpretation:Normal Performing Lab: Notes/Report: Test performed by [facility] [address] , [address], [place] [address] Tj Leong MD, Oracle Database Manager CLIA: [id number] Cholesterol 141 <200 mg/dL Triglycerides 106 <150 mg/dL HDL Cholesterol 43 >39 mg/dL Cholesterol / HDL Ratio 3.28 0.00-4.99 Ratio Non-HDL Cholesterol 98 <130 mg/dL LDL Cholesterol (Calculation) 77 <130 mg/dL LDL Cholesterol Levels* Less than 100 mg/dL Optimal 100 to 129 mg/dL Near Optimal/ Above Optimal 130 to 159 mg/dL Borderline High 160 to 189 mg/dL High 190 mg/dL and above Very High * Categories as recommended by the 2004 ATPIII guidelines LDL/HDL Ratio 1.8 <3.3 Ratio LDL Cholesterol Patient History Test Date: 03/03/2023 LDL Results: 57 Units: mg/dL % Change: - Test Date: 09/06/2023 LDL Results: 86 Units: mg/dL % Change: +50% Test Date: 08/29/2024 LDL Results: 77 Units: mg/dL % Change: -10% P-TSH reflex to FT4 Reviewed date:08/31/2024 03:00:41 PM Interpretation:Normal Performing Lab: Notes/Report: Test performed by [facility], [address] , [address], [place] [address] Tj Leong MD, Oracle Database Manager CLIA: [id number] TSH reflex to FT4 1.36 0.43-5.25 mU/L REASON FOR VISIT 6 months with fasting labs Medications Medication SIG (Take, Route, Frequency, Duration) Notes Start Date End Date Status Loratadine 10 MG 1 tablet Orally Once a day Active Niacin 500 MG 1 tablet with food O rally Once a day; Duration: 30 day(s) Active Sildenafil Citrate 20 MG 1to 5 tab(s) or ally once a day as needed 02/13/2021 Active Osteo Bi-Flex One Per Day - as directed Orally Active Vitamin C 250 MG 1 tablet Orally Once a day; Duration: 30 day(s) Active Atorvastatin Calcium 10 MG 1 tab(s) oral ly once a day Active Montelukast Sodium 10 MG 1 tablet Orally Once a day; Duration: 30 days 08/29/2024 Active Esomeprazole Magnesium 40 MG 1 capsule before morning meal Orally Once a day Active Social History Tobacco Use: Social History Observation Description Date Details (start date - stop date) Never Smoker NA - NA CURRENT TOBACCO USE: Question Answer Notes Are you a: never smoker Problems Problem Type SNOMED Code ICD Code Onset Dates Problem Status W/U Status Risk Notes Problem Allergic rhinitis (93024926) Allergic rhinitis, unspecified seasonality, unspecified trigger (J30.9) Active confirmed Problem Malignant neoplasm of prostate (290871359) Malignant neoplasm of prostate (C61) Active confirmed Vital Signs Blood pressure systolic 130 mm Hg 08/30/19 25 Blood pressure diastolic 80 mm Hg 025 Heart Rate 76 /min 08/29/2024 Height 70.50 in 08/29/2024 Weight 183.6 lbs 08/29/2024 BMI 25.97 kg/m2 08/29/2024 Encounters Encounter Location Date Provider Diagnosis [facility] [address], [place] [id number] 08/29/2024 Fco Kimberly Pure hypercholestero lemia E78.00 ; Gastroesophageal reflux disease, esophagitis presence not specified K21.9 ; Allergic rhinitis, unspecified seasonality, unspecified trigger J30.9 ; MCC use of drug Z79.899 ; Malignant neoplasm of prostate C61 and BMI 25.0-25.9,adult Z68.25 Assessments Encounter Date Diagnosis (ICD Code) Assessment Notes Treatment Notes Treatment Clinical Notes Section Notes 08/29/2024 Pure hypercholesterolemia (ICD-10 - E78.00) 08/29/2024 Gastroesophageal ref lux disease, esophagitis presence not specified (ICD-10 - K21.9) 08/29/2024 Allergic rhinitis, unspecified seasonality, unspecified trigger (ICD-10 - J30.9) 08/29/2024 MCC use of taye g (ICD-10 - Z79.899) 08/29/2024 Malignant neoplasm o f prostate (ICD-10 - C61) 08/29/2024 BMI 25.0-25.9,adult (ICD-10 - Z68.25) Plan Of Treatment Medication Medication Name Sig Start Date Stop Date Notes Loratadine 10 MG 1 tablet Orally Once a day Atorvastatin Calcium 10 MG 1 tab(s) orally once a day Montelukast Sodium 10 MG 1 tablet Orally Once a day; Duration: 30 days 08/29/2024 Esomeprazole Magnesium 40 MG 1 capsule b efore morning meal Orally Once a day Next Appt Details Follow Up: 6 Months, Reason: Provider Name:Fco Shaikh ry, 02/28/2025 10:00:00 AM, [address], [address], [place], [place], [id number], Progress Notes * EWELINA NEWBERRY DDOB:[birth year] (79 yo M)Acc No.[id number]:08/29/2024 Progress Notes Patient: EWELINA SHOOK Provider: Reed Moreno M.D. :1945 A ge:79 Y S ex:Male Date:08/29/2024 Address:[address] [place] [address], [facility] Subjective: * Chief Complaints: * 1 . 6 months with fasting labs. * HPI: C ardiology: 79 year old male presents with c/o Hyperlipidemia P t here to f/u. Pt states he is doing well and does not have any concerns. , Pt is fasting today. * ROS: D ERMATOLOGY: no R fawn. n o H liu. G ASTROENTEROLOGY: no N ausea. n o V omiting. U ROLOGY: no D ifficulty urinating. n o B lood in urine. * Medical History: H yperlipidemia, Esophageal Reflux, Basal Cell on Scalp, 2013, prostate cancer, Dx 2024, s/p radiation and hormone treatment with Dr. Green. * Surgical History: S kin Cancer, Scalp [...] status: never smoked. * Medications: T aking Loratadine 10 MG Tablet 1 tablet Orally Once a day , Taking Niacin 500 MG Tablet 1 tablet with food Orally Once a day , Taking Vitamin C 250 MG Tablet 1 tablet Orally Once a day , Taking Osteo Bi-Flex One Per Day - Tablet as directed Orally , Taking Sildenafil Citrate 20 MG Tablet 1to 5 tab(s) orally once a day as needed , Taking Atorvastatin Calcium 10 MG Tablet 1 tab(s) orally once a day , Taking Esomeprazole Magnesium 40 MG Capsule Delayed Release 1 capsule before morning meal Orally Once a day , Medication List reviewed and reconciled with the patient * Allergies: N .K.D.A. Objective: * Vitals: W t: 183.6, Temp: 97.8, BP: 130/80, HR: 76, Nurse: parker, Ht: 70.50, BMI:25.97. * Examination: C ardiology: General Appearance: p leasant, NAD. H EENT: u nremarkable. H eart sounds: R RR, normal S1, S2. L ungs: c lear, no rales or wheezes.?Extremities: n o leg edema. Assessment: * Assessment: 1. P ure hypercholesterolemia - E78.00 (Primary) 2 . G astroesophageal reflux disease, esophagitis presence not specified - K21.9 3 . A llergic rhinitis, unspecified seasonality, unspecified trigger - J30.9 4 . L maik term use of drug - Z79.899 5 . M alignant neoplasm of prostate - C61 6 . B ME 25.0-25.9,adult - Z68.25 Plan: * Treatment: Value Reference Range A /G Ratio 2.0 1.1-2.5 - * A lbumin 4.3 3.5-5.3 - g/dL * A lkaline Phosphatase 126 40-129 - IU/L * A LT (SGPT) 24 <5-55 - IU/L * A ST (SGOT) 22 <5-46 - IU/L * B ilirubin, Total 0.5 <0.2-1.2 - mg/dL * B UN 19 8-23 - mg/dL * C alcium 9.4 8.6-10.4 - mg/dL * C hloride 105 97-108 - mmol/L * C O2 23 22-32 - mmol/L * C reatinine 0.84 0.70-1.30 - mg/dL * G lucose 106 H 65-99 - mg/dL * P otassium 4.3 3.5-5.3 - mmol/L * S odium 141 135-145 - mmol/L * P rotein 6.4 6.0-8.3 - g/dL * e GFR by Creatinine 87 >59 - mL/min/1.73m2 * Sandra Mejiaira 08/31/2024 03:00: 07 PM EDT > Pt informed ?LAB: P-Lipid Panel (Collection Date & Time - 08/29/2024 08:26 AM)?Normal* Value Reference Range C holesterol / HDL Ratio 3.28 0.00-4.99 - Ratio * C holesterol 141 <200 - mg/dL * H DL Cholesterol 43 >39 - mg/dL * L DL Cholesterol (Calculation) 77 <130 - mg/d L * L DL/HDL Ratio 1.8 <3.3 - Ratio * N on-HDL Cholesterol 98 <130 - mg/dL * T riglycerides 106 <150 - mg/dL * Roberto Ciara 08/31/2024 03:00: 07 PM EDT > Pt informed ?LAB: P-TSH reflex to FT4 (Collection Date & Time - 08/29/2024 08:26 AM)? Normal* Value Reference Range T SH reflex to FT4 1.36 0.43-5.25 - mU/L * Roberto Ciara 08/31/2024 03:00: 07 PM EDT > Pt informed 2.?Gastroesophageal reflux disease, esophagitis presence not specified? Continue Esomeprazole Magnesium Capsule Delayed Release, 40 MG, 1 capsule before morning meal, Orally, Once a day.??3.?Allergic rhinitis, unspecified seasonality, unspecified trigger? Start Montelukast Sodium Tablet, 10 MG, 1 tablet, Orally, Once a day, 30 days, 30, Refills 0;?Continue Loratadine Tablet, 10 MG, 1 tablet, Orally, Once a day.??4.?MCC use of drug?LAB: CBC Venipuncture (in house) (Collection Date & Time - 08/29/2024)* Value Reference Range w bc 2.9 3.5 - 10 * l ymph 15.5% 15 - 50 * m id 5.7% 2 - 15 * g ran 78.8% 35 - 80 * r bc 4.33 3.5 - 5.5 * h gb 14.0 11.5 - 16.5 * h ct 41.7 35 - 55 * m cv 96.2 75 - 100 * m ch 32.3 25 - 35 * m chc 33.6 31 - 38 * p latlet 232 100 - 400 * Ciara Mejia 08/29/2024 02:04: 51 PM EDT >Fco Moreno 08/29/2024 10:27:10 PM EDT > * Procedure Codes: G 2211 Complex e/[place] [address] CBC WITH AUTO DIFF, 1036F TOBACCO NON-USER, G8420 BMI<30 AND >=22 CALC & DOCU, G8783 BP SCR PRFRM RCMDD DEFIND SCR INTVL, G8752 MOST RECENT SYSTOLIC BP < 140MM HG, G8754 MOST RECENT DIASTOLIC BP < 90MM HG * Follow Up: 6 Months * Images: Billing Information: * Visit Code: 48982 Office Visit, Est Pt., Level 4. * Procedure Codes: G2211 Complex e/[place]. [address] CBC WITH AUTO DIFF. 1036F TOBACCO NON-USER. G8420 BMI<30 AND >=22 CALC & DOCU. G8783 BP SCR PRFRM RCMDD DEFIND SCR INTVL. G8752 MOST RECENT SYSTOLIC BP < 140MM HG. G8754 MOST RECENT DIASTOLIC BP < 90MM HG. * Electronic signature of Crystal Moreno MD on 11/23/2024 at 09:56 AM EDT Sign off status: Pending * Provider: Reed Moreno M.D. Date: 0 08/29/2024 Generated for Kristofer hester/Dena/Revaitting on: 0 11/23/2024 09:56 AM EDT History and Physical Notes * HPI (History of Present Illness) Category Sub-Category Detail Notes Category Not es Cardiology Hyperlipidemia Pt here to f/u. Pt states he is doing well and does not have any concerns. , Pt is fasting today Examination Category Sub-Category Detail Notes Category Not es Cardiology Lungs: clear, no rales or wheezes HEENT: unremarkable Heart sounds: RRR, normal S1, S2 Extremities: no leg edema General Appearance: pleasant, NAD
--- OUTSIDE RECORDS SUMMARY | 2024-11-20 11:30 | XMS_ITS ---
Author Organization [facility] Address [address] [facility] [address] [id number] Care Team Providers Care Gang Worker Name Role Phone Fco Moreno Primary Care Provider Allergies No Known Allergies Results Component Value Reference Range Notes Urinalysis - Inhouse Reviewed date:11/20/2024 10:40:19 PM Interpretation: Performing Lab: Notes/Report: Color/Clarity Kelsy/Clear Leuk Neg Nitrite Neg Urobili 66 Protein Neg pH 7.0 Blood Neg Sp. Gr. 1.015 Ketone Trace Bili 1+ Gluc Neg H-TSH Reviewed date:11/21/2024 10:08:55 AM Interpretation:Normal Performing Lab: Notes/Report: TSH 1.11 0.465-4.68 uIU/mL H-CBC Reviewed date:11/21/2024 10:08:55 AM Interpretation:rbc 4.14, hgb 13.4, hct 38.9, mch 32.4, mo% 9.7, ly 0.6 Performing Lab: Notes/Report: WBC 5.4 4.8-10.8 K/mm3 RBC 4.14 4.60-6.20 M/mm3 HGB 13.4 14.1-18.0 g/dL HCT 38.9 42.0-52.0 % MCV 94.0 80-94 fl MCH 32.4 27.0-31.2 pg MCHC 34.4 31.8-35.4 g/dL RDW-SD 40.4 RDW 11.7 11.5-17.5 % PLT 179 142-424 K/mm3 MPV 10.2 7.4-10.4 fl NE% 79.0 37.0-80.0 % LY% 10.5 10-50 % MO% 9.7 1.7-9.3 % EO% 0.2 0.1-12.0 % BA% 0.4 0.1-2.0 % NRBC% 0 IG% 0.2 NE# 4.3 1.8-7.8 K/mm3 LY# 0.6 0.7-4.5 K/mm3 MO# 0.5 0.1-1.0 K/mm3 EO# 0.0 0.0-0.4 Kmm3 BA# 0.0 0-0.2 K/mm3 NRBC# 0 IG# 0.01 H-CMP Reviewed date:11/21/2024 10:08:55 AM Interpretation:Na 128, Cl 93, GAP 15.6, BiliT 1.7, AST 107, ALT 114, ALP 284 Performing Lab: Notes/Report: NA 128 136-145 mmol/L K 4.6 3.5-5.1 mmoL/L CL 93 98-107 mmol/L CO2 24 22.0-30.0 mmol/L GAP 15.6 5-15 mEq/L BUN 14 9-20 mg/dl CREATT 1.00 0.66-1.25 mg/dl GFRAA 87 >60 ML/MIN EGFR 72 >60 ml/min GLU 96 74-100 mg/dl CA 9.0 8.4-10.2 mg/dl BILIT 1.7 0.2-1.3 mg/dl AST 107 17-59 U/L ALT 114 12-78 U/L TP 6.8 6.3-8.2 g/dl ALB 4.0 3.5-5.0 g/dl GLOB 2.8 1.3-3.2 g/dL AGRATIO 1.4 1.1-1.8 ALP 284 38-126 U/L H-PHOS Reviewed date:11/21/2024 10:08:55 AM Interpretation:2 Performing Lab: Notes/Report: PHOS 2.0 2.5-4.5 mg/dl CRITICAL RESULT Results called and read back/verified to: DR. ZAPATA on 11/20/24 at 1924 By Barbra Foreman MLT H-Magnesium Reviewed date:11/21/2024 10:08:55 AM Interpretation:Normal Performing Lab: Notes/Report: MG 1.7 1.6-2.3 mg/dl REASON FOR VISIT Vertigo low back pAIN Medications Medication SIG (Take, Route, Frequency, Duration) Notes Start Date End Date Status Sildenafil Citrate 20 MG 1to 5 tab(s) or ally once a day as needed 02/13/2021 Active Loratadine 10 MG 1 tablet Orally Once a day Active Esomeprazole Magnesium 40 MG 1 capsule before morning meal Orally Once a day; Duration: 90 days Active Montelukast Sodium 10 MG 1 tablet Orally Once a day; Duration: 90 days 08/29/2024 Active Atorvastatin Calcium 10 MG 1 tab(s) oral ly once a day; Duration: 90 days Active Vitamin C 250 MG 1 tablet Orally Once a day; Duration: 30 day(s) Active Osteo Bi-Flex One Per Day - as directed Orally Active Meclizine HCl 12.5 MG 1 tablet Orally every 8 hrs As needed 11/20/2024 Active Niacin 500 MG 1 tablet with food O rally Once a day; Duration: 30 day(s) Active Social History Tobacco Use: Social History Observation Description Date Details (start date - stop date) Never Smoker NA - NA CURRENT TOBACCO USE: Question Answer Notes Are you a: never smoker Vital Signs Blood pressure systolic 134 mm Hg 11/21/19 25 Blood pressure diastolic 82 mm Hg 025 Heart Rate 112 /min 11/20/2024 Height 70.50 in 11/20/2024 Weight 184.6 lbs 11/20/2024 BMI 26.11 kg/m2 11/20/2024 Encounters Encounter Location Date Provider Diagnosis [facility] [address] [place], [place] [id number] 11/20/2024 Fco [place] Dizziness R42 and Lumbar back pain M54.50 Assessments Encounter Date Diagnosis (ICD Code) Assessment Notes Treatment Notes Treatment Clinical Notes Section Notes 11/20/2024 Dizziness (ICD-10 - R42) 11/20/2024 Lumbar back pain (ICD-10 - M54.50) 11/20/2024 Other Increase oral fluid intake, call with progress report in the morning Plan Of Treatment Medication Medication Name Sig Start Date Stop Date Notes Meclizine HCl 12.5 MG 1 tablet Orally every 8 hrs 11/21/19 25 Treatment Notes Assessment Notes Other Increase oral fluid intake, call with progress report in the morning Next Appt Details Follow Up: via phone to repo rt progress, Reason: Provider Name:Fco Shaikh ry, 02/28/2025 10:00:00 AM, [address] [facility] [address], [address], [place], [place], [id number], Progress Notes * EWELINA NEWBERRY DDOB:[birth year] (79 yo M)Acc No.[id number]:11/20/2024 Progress Notes Patient: EWELINA SHOOK Provider: Reed Moreno M.D. :1945 A ge:79 Y S ex:Male Date:11/20/2024 Address:[address] [place] [address], [facility] Subjective: * Chief Complaints: * 1 . Vertigo low back pAIN. * HPI: M igor Reproductive: 79 year old male presents with c/o frequency P t complains of frequent urination for about a week. Associated with foul smelling urine and lower back pain.? N eurology: c/o Dizziness P t complains of dizziness and feeling light headed s rufina Wednesday. Pt states it is so bad that he cannot get around with assistance . * ROS: D ERMATOLOGY: no R fawn. [...] once a day as needed , Taking Loratadine 10 MG Tablet 1 tablet Orally Once a day , Taking Atorvastatin Calcium 10 MG Tablet 1 tab(s) orally once a day , Taking Esomeprazole Magnesium 40 MG Capsule Delayed Release 1 capsule before morning meal Orally Once a day , Taking Montelukast Sodium 10 MG Tablet 1 tablet Orally Once a day , Medication List reviewed and reconciled with the patient * Allergies: N .K.D.A. Objective: * Vitals: W t: 184.6, Temp: 98.1, BP: 134/82, HR: 112, Nurse: parker, Ht: 70.50, BMI:26.11. * Examination: G eneral Examination: General Appearance: N AD, conversant. H eart: R SR.?Lungs: c lear to auscultation. A bdomen: b owel sounds present, soft and nontender. P eripheral pulses: n ormal (2+) bilaterally. B ack: n o CVA tenderness. E xtremities: n o leg edema. Assessment: * Assessment: 1. D izziness - R42 (Primary) 2 . L umbar back pain - M54.50 ? Plan: * Treatment: Value Reference Range T SH 1.11 0.465-4.68 - uIU/mL * Sasha Vazquez 11/21/2024 10:0 8:08 AM EDT > See phone encounter ?LAB: H-CBC (Collection Date & Time - 11/20/2024 04:36 PM)?rbc 4.14, hgb 13.4, hct 38.9, mch 32.4, mo% 9.7, ly 0.6* Value Reference Range W BC 5.4 4.8-10.8 - K/mm3 * R BC 4.14 L 4.60-6.20 - M/mm3 * H GB 13.4 L 14.1-18.0 - g/dL * H CT 38.9 L 42.0-52.0 - % * M CV 94.0 80-94 - fl * M CH 32.4 H 27.0-31.2 - pg * M CHC 34.4 31.8-35.4 - g/dL * R DW 11.7 11.5-17.5 - % * P LT 179 142-424 - K/mm3 * M PV 10.2 7.4-10.4 - fl * N E% 79.0 37.0-80.0 - % * L Y% 10.5 10-50 - % * M O% 9.7 H 1.7-9.3 - % * E O% 0.2 0.1-12.0 - % * B A% 0.4 0.1-2.0 - % * N E# 4.3 1.8-7.8 - K/mm3 * L Y# 0.6 L 0.7-4.5 - K/mm3 * M O# 0.5 0.1-1.0 - K/mm3 * E O# 0.0 0.0-0.4 - Kmm3 * B A# 0.0 0-0.2 - K/mm3 * R DW-SD 40.4 - fL * N RBC% 0 - % * N RBC# 0 - 10 3/uL * I G% 0.2 - % * I G# 0.01 - 10 3uL * Sasha Vazquez 11/21/2024 10:0 8:08 AM EDT > See phone encounter ?LAB: H-CMP (Collection Date & Time - 11/20/2024 04:36 PM)?Na 128, Cl 93, GAP 15.6, BiliT 1.7, AST 107, ALT 114, ALP 284* Value Reference Range N A 128 L 136-145 - mmol/L * K 4.6 3.5-5.1 - mmoL/L * C L 93 L 98-107 - mmol/L * C O2 24 22.0-30.0 - mmol/L * G AP 15.6 H 5-15 - mEq/L * B UN 14 9-20 - mg/dl * C REATT 1.00 0.66-1.25 - mg/dl * G FRAA 87 >60 - ML/MIN * E GFR 72 >60 - ml/min * G JAYME 96 74-100 - mg/dl * C A 9.0 8.4-10.2 - mg/dl * B ILIT 1.7 H 0.2-1.3 - mg/dl * A ST 107 H 17-59 - U/L * A LT 114 H 12-78 - U/L * T P 6.8 6.3-8.2 - g/dl * A LB 4.0 3.5-5.0 - g/dl * G LOB 2.8 1.3-3.2 - g/dL * A GRATIO 1.4 1.1-1.8 - * A LP 284 H 38-126 - U/L * Sasha Vazquez 11/21/2024 10:0 8:08 AM EDT > See phone encounter ?LAB: H-PHOS (Collection Date & Time - 11/20/2024 04:36 PM)?2* Value Reference Range P HOS 2.0 L 2.5-4.5 - mg/dl * Sasha Vazquez 11/21/2024 10:0 8:08 AM EDT > See phone encounter ?LAB: H-Magnesium (Collection Date & Time - 11/20/2024 04:36 PM)?Normal* Value Reference Range M G 1.7 1.6-2.3 - mg/dl * Sasha Vazquez 11/21/2024 10:0 8:08 AM EDT > See phone encounter 2.?Lumbar back pain?LAB: Urinalysis - Inhouse (Collection Date & Time - 11/20/2024)* Value Reference Range C olor/Clarity Kelsy/Clear * L euk Neg * N itrite Neg * U robili 66 * P rotein Neg * p H 7.0 * B lood Neg * S p. Gr. 1.015 * K etone Trace * B omega 1+ * G gautam Neg * Ciara Mejia 11/20/2024 04:42:0 1 PM EDT > Provider reviewed results while patient in office.Fco Moreno 11/20/2024 10:40:15 PM EDT > 3.?Others? Notes: Increase oral fluid intake, call with progress report in the morning?? * Procedure Codes: G 2211 Complex e/m visit add on * Follow Up: v ia phone to report progress * Images: Billing Information: * Visit Code: 42849 Office Visit, Est Pt., Level 4. * Procedure Codes: G2211 Complex e/m visit add on. * Electronic signature of Crystal Moreno MD on 11/23/2024 at 09:56 AM EDT Sign off status: Pending * Provider: Reed Moreno M.D. Date: 0 11/20/2024 Generated for Kristofer hester/Dena/Nydia on: 0 11/23/2024 09:56 AM EDT History and Physical Notes * HPI (History of Present Illness) Category Sub-Category Detail Notes Category Not es Neurology Dizziness Pt complains of dizziness and feeling light headed since Wednesday. Pt states it is so bad that he cannot get around with assistance Male Reproductive frequency Pt complains o f frequent urination for about a week. Associated with foul smelling urine and lower back pain Examination Category Sub-Category Detail Notes Category Not es General Examination Heart: RSR Lungs: clear to auscultatio n Abdomen: bowel sounds present , soft and nontender Extremities: no leg edema General Appearance: NAD, conversant Peripheral pulses: normal (2+) bilatera lly Back: no CVA tenderness
--- NOTE | 2024-11-23 09:53 | US_ITS ---
FINAL REPORT TECHNIQUE: Sonographic images of the right upper quadrant were obtained. CLINICAL HISTORY: ELEVATED LIVER ENZYMES COMPARISON: None FINDINGS: PANCREAS: Unremarkable. LIVER: Fatty infiltrated. No focal hepatic lesion. No intrahepatic biliary ductal dilatation. The portal vein is patent. GALLBLADDER: There are gallstones of the gallbladder. No gallbladder wall thickening or pericholecystic fluid. COMMON DUCT: 4 mm. Normal for age. RIGHT KIDNEY: The right kidney measures 10.4 cm. There is no hydronephrosis, mass, or stone. FREE FLUID: None. IMPRESSION: Fatty liver Gallstones. Reviewed, Interpreted and Dictated by Karie Chopra MD Transcribed by Federica Odonnell Authenticated and . [facility]
--- OUTSIDE RECORDS SUMMARY | 2024-11-23 09:57 | XMS_ITS | Patient Health Record ---
Author Organization [facility] Address [address] [facility] [address] [facility] [address] [place] [phone] Care Team Providers Care Corporate Technical Recruiter Name Role Phone [place] [facility] Primary Care Provider Allergies No Known Allergies Results Component Value Reference Range Notes P-PSA Free and Total Reviewed date:03/01/2024 11:52:49 AM Interpretation:9.74 Performing Lab: Notes/Report: Test performed by [facility] [address] , [address], [place] [address] Tj Leong MD, Surveillance Supervisor CLIA: [id number] PSA 9.74 <4.00 ng/mL Please note this is an ultrasensitive PSA assay with a lower limit of detection of 0.014 ng/mL. This test is performed by the [employer] ECLIA methodology. Values obtained with different assay [...] Interpretation:Normal Performing Lab: Notes/Report: Test performed by [facility] [address] [place] [address] , [address], [place] [address] Tj Leong MD, Surveillance Supervisor CLIA: [id number] Sodium 141 135-145 mmol/L Potassium 4.3 3.5-5.3 [...] Interpretation:Normal Performing Lab: Notes/Report: Test performed by [facility] [address] [place] [address] , [address], [place] [address] Tj Leong MD, Surveillance Supervisor CLIA: [id number] Cholesterol 141 <200 mg/dL Triglycerides 106 <150 [...] Interpretation:Normal Performing Lab: Notes/Report: Test performed by [facility], [address] , [address], [place] [address] Tj Leong MD, Surveillance Supervisor CLIA: [id number] TSH reflex to FT4 1.36 0.43-5.25 mU/L H-Magnesium Reviewed date:11/21/2024 10:08:55 AM Interpretation:Normal Performing Lab: Notes/Report: MG 1.7 1.6-2.3 mg/dl H-PHOS Reviewed date:11/21/2024 10:08:55 AM Interpretation:2 Performing Lab: Notes/Report: PHOS 2.0 2.5-4.5 mg/dl CRITICAL RESULT Results called and read back/verified to: DR. ZAPATA on 11/20/24 at 1924 By Barbra Foreman MLT H-CMP Reviewed date:11/21/2024 10:08:55 AM Interpretation:Na 128, [...] AGRATIO 1.4 1.1-1.8 ALP 284 38-126 U/L H-CBC Reviewed date:11/21/2024 10:08:55 AM Interpretation:rbc 4.14, [...] 0.0 0-0.2 K/mm3 NRBC# 0 IG# 0.01 H-TSH Reviewed date:11/21/2024 10:08:55 AM Interpretation:Normal Performing Lab: Notes/Report: TSH 1.11 0.465-4.68 uIU/mL Urinalysis - Inhouse Reviewed date:11/20/2024 10:40:19 PM Interpretation: Performing Lab: Notes/Report: Color/Clarity Kelsy/Clear Leuk Neg Nitrite Neg Urobili 66 Protein Neg pH 7.0 Blood Neg Sp. Gr. 1.015 Ketone Trace Bili 1+ Gluc Neg Reason For Referral Diagnosis 1 Elevated PSA (R97.20 ) Referral Organization [facility] Referring Provider First Name Fco Referring Provider [...] Vaccine Route Administration Date Status Comme nts Tetanus Tdap-Adacel (over 7yrs) IM Intramuscular 05/18/2018 Administered Prevnar (PCV20) IM Intramuscular 02/13/2022 Administered Prevnar (PCV13) IM Intramuscular 12/27/2018 Administered PNEUMOVAX 23 VACCINE IM Intramuscular 04/20/2017 Administered Fluzone High Dose (65yr and older) IM Intramuscular 01/01/2018 Administered Fluzone High Dose (65yr and older) IM Intramuscular 12/27/2018 Administered Fluzone High Dose (65yr and older) IM Intramuscular 01/16/2020 Administered Fluzone High Dose (65yr and older) IM Intramuscular 02/13/2021 Administered given [facility] Fluzone High Dose (65yr and older) IM Intramuscular 02/13/2022 Administered COVID 19 [place] Unknown 05/22/2020 Administered COVID 19 [place] Unknown 05/07/2021 Administered Social History Tobacco Use: Social History Observation Description Date Details (start date - stop date) Never Smoker NA - NA CURRENT TOBACCO USE: Question Answer Notes Are you a: never smoker Problems Problem Type SNOMED Code ICD Code Onset Dates Problem Status W/U Status Risk Notes Problem Memory loss (59297775) Memory loss (R41.3) Active confirmed Problem Malignant neoplasm o f prostate (688389926) Malignant neoplasm of prostate (C61) Active confirmed Problem Primary insomnia (0012762) Primary insomnia (F51.01) Active confirmed Problem Bilateral tinnitus (0721788146019) Tinnitus of both ears (H93.13) Active confirmed Problem Gastroesophageal reflux disease (184126837) Gastroesophageal reflux disease, esophagitis presence not specified (K21.9) Active confirmed Problem Erectile dysfunction (disorder) (782909712) Erectile dysfunction, unspecified erectile dysfunction type (N52.9) Active confirmed Problem Pure hypercholesterolemia (937206597) Pure hypercholesterolemia (E78.00) Active confirmed Problem Hearing loss (78601719) Hearing loss, unspecified hearing loss type, unspecified laterality (H91.90) Active confirmed Problem Arthritis of right hip (3748516915188999) Arthritis of right hip (M16.11) Active confirmed Problem Allergic rhinitis (15377565) Allergic rhinitis, unspecified seasonality, unspecified trigger (J30.9) Active confirmed Vital Signs Heart Rate 112 /min 11/20/2024 Blood pressure diastolic 82 mm Hg 11/20/2024 Height 70.50 in 11/20/2024 Blood pressure systolic 134 mm Hg 11/20/2024 Weight 184.6 lbs 11/20/2024 BMI 26.11 kg/m2 11/20/2024 Encounters Encounter Location Date Provider Diagnosis [facility] [address] [facility] [address] [place] [id number] 02/29/2024 [facility] [place] Gastroesophageal ref lux disease, esophagitis presence not specified K21.9 ; Elevated PSA R97.20 and Prostate cancer screening Z12.5 [facility] [address] 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 [address] [place] [id number] 11/20/2024 [facility] [place] Dizziness R42 and Natty mbar back pain M54.50 [facility] [address] [place] [id number] 03/01/2024 Fcolindy Moreno Elevated PSA R97.20 [facility] [address] [place] [id number] 10/24/2024 Fcolindy Moreno Allergic rhinitis, unspecified seasonality, unspecified trigger J30.9 [facility] [address] [place] [id number] 11/21/2024 [facility] [place] Assessments Encounter Date Diagnosis (ICD Code) Assessment [...] Prostate cancer screening (ICD-10 - Z12.5) 08/29/2024 [facility] use of taye g (ICD-10 - Z79.899) 08/29/2024 Malignant neoplasm o f prostate (ICD-10 - C61) 08/29/2024 BMI 25.0-25.9,adult (ICD-10 - Z68.25) 11/20/2024 Other Increase oral fluid intake, call with progress report in the morning Plan Of Treatment Pending Test Test Name Order Date H-CMP 11/21/2024 Ultrasound : Abdomen limited 11/21/2024 Next Appt Details Provider Name:Fco Shaikh ry, 02/28/2025 10:00:00 AM, [address], [address], [place], [place], [id number], Insurance Providers Payer Name Payer Address Payer Phone Subscriber Number Group Number Insured Name Patient Relationship to Insured Coverage Start Date Coverage End Date [employer] (MEDICAR E) [address] [address] [place] [address] [id number] EWELINA NEWBERRY Self - patient is the [...]
--- OUTSIDE RECORDS SUMMARY | 2024-11-23 09:57 | XMS_ITS | Referral Summary ---
Author Organization [employer] ([place], [place], [place], [place]) Address [address] [place] [address] Care Team Providers Care Channel Executive Name Role Phone Unavailable Primary Care Provider Unavailabl e Social History Tobacco Use Types Packs/Day Years Used Date Smoking Tobacco: Never Assessed Sex and Gender Information Value Date Recorded Sex Assigned at Not on file Legal Sex Male 6:15 PM CDT Gender Identity Not on file Sexual Orientation Not on file Plan of Treatment Not on file
--- OUTSIDE RECORDS SUMMARY | 2024-11-23 09:57 | XMS_ITS | Clinical Summary ---
Author Organization [employer] ([place], [place], [place], [place]) Address [address] [place] [address] Care Team Providers Care Pari Mutual Ticket Checker Name Role Phone Unavailable Primary Care Provider [...]
--- OUTSIDE RECORDS SUMMARY | 2024-11-23 09:57 | XMS_ITS | Encounter Summary ---
Author Organization [employer] ([place], [place], [place], [place]) Address [address] [place] [address] Care Team Providers Care Loading Rack Supervisor Name Role Phone Unavailable Primary Care Provider Unavailabl e Encounter Details Date Type Department Care Team (Late st Contact Info) Description 12/02/2018 Transcribed Document [facility] [facility] [place] [address] ProviderJerrod MD [address] [place] [id number] Social History Tobacco Use Types Packs/Day Years Used Date Smoking Tobacco: Never Assessed Sex and Gender Information Value Date Recorded Sex Assigned at Not on file Legal Sex Male 6:15 PM CDT Gender Identity Not on file Sexual Orientation Not on file documented as of this encounter Miscellaneous Notes * Cerner Conversion Note - Jerrod Byrd MD - 12/02/2018 12:03 PM CDT Orthopedic Nurse Navigator Entered On: 12/02/2018 12:04 EDT Performed On: 12/02/2018 12:03 EDT by Janie Lebron Rn Orthopedic Nurse Navigator Assessment Anticipated Discharge Plan Comment : 1 year post operation surveys. Janie Lebron Rn - 12/02/2018 12:03 EDT JR LEFTY. Hip Survey 1. Going up or down stairs : None 2. Walking on an uneven surface : None 3. Rising from sitting : None 4. Bending to floor/hop picker an object : None 5. Lying in bed (turning over, maintaining hip position) : Mild 6. Sitting : None LEFTY ROUSSEAU Raw Score (ref) : 1 Janie Lebron Rn - 12/02/2018 12:03 EDT PROMIS Global Health Scale In general, would you say your health is: : Excellent In general, would you say your quality of life is: : Good In general, how would you rate your physical health? : Excellent In general, how would you rate your mental health, including your mood and your ability to think? : Very good In general, how would you rate your satisfaction with your social activities and relationships? : Good In general, please rate how well you carry out your usual social activities and roles. (This includes activities at home, at work and in your community, and responsibilities as a parent, child, spouse, employee, friend, etc.) : Very good To what extent are you able to carry out your everyday physical activities such as walking, climbing stairs, carrying groceries, or moving a chair? : Completely How often have you been bothered by emotional problems such as feeling anxious, depressed or irritable? : Sometimes How would you rate your fatigue on average? : Mild How would you rate your pain on average? : 0 No pain Global Physical Health Score (ref) : 19 Global Mental Health Score (ref) : 13 Janie Lebron Rn - 12/02/2018 12:03 EDT documented in this encounter Plan of Treatment Not on file documented as of this encounter Visit Diagnoses Not on filedocumented in this encounter
== END 2024-11-23 23:59 | disposition home or self-care (01) ==
LOC: RAD 09:51
PROVIDERS: PCP Family Medicine; Visit Provider Family Medicine
DX: K76.0 Fatty (change of) liver, not elsewhere classified; K80.20 Calculus of gallbladder without cholecystitis without obstruction
CPT/HCPCS: 76705

== ENCOUNTER 2024-12-08 10:04 | Outpatient (CLI) | payer MEDICARE, SELFPAY ==
[2024-12-08 10:22] LABS: Hematocrit 34.8 % (42.0-52.0); Hemoglobin 11.9 g/dL (14.1-18.0); Immature Granulocytes % 0.5 %; Mean Corpuscular HGB Conc 34.2 g/dL (31.8-35.4); Mean Corpuscular Hemoglobin 32.8 pg (27.0-31.2); Mean Corpuscular Volume 95.9 fl (80-94); Nucleated Red Blood Cells % 0 %; Platelet Count 342 K/mm3 (142-424); Red Blood Count 3.63 M/mm3 (4.60-6.20); Red Cell Distribution Width-SD 41.9 fL; White Blood Count 9.8 K/mm3 (4.8-10.8)
[2024-12-08 11:12] LABS: Albumin Level 3.6 g/dl (3.5-5.0); Chloride 93 mmol/L (98-107); Sodium 132 mmol/L (136-145)
[2024-12-08 11:13] LABS: Potassium 4.7 mmoL/L (3.5-5.1)
[2024-12-08 11:15] LABS: Alanine Aminotransferase 42 U/L (12-78); Albumin/Globulin Ratio 1.3 (1.1-1.8); Alkaline Phosphatase 412 U/L (38-126); Anion Gap 12.7 mEq/L (5-15); Aspartate Amino Transferase 34 U/L (17-59); Bilirubin,Total 0.7 mg/dl (0.2-1.3); Blood Urea Nitrogen 15 mg/dl (9-20); Carbon Dioxide 31 mmol/L (22.0-30.0); Creatinine,Serum 1.00 mg/dl (0.66-1.25); Estimated Glomerular Filt Rate 72 ml/min (>60); GFR (African American) 87 ML/MIN (>60); Globulin 2.8 g/dL (1.3-3.2); Total Protein,Serum 6.4 g/dl (6.3-8.2)
[2024-12-08 11:16] LABS: Calcium 9.4 mg/dl (8.4-10.2); Glucose 107 mg/dl (74-100)
== END 2024-12-08 23:59 | disposition home or self-care (01) ==
LOC: LAB 10:04
PROVIDERS: PCP Family Medicine; Visit Provider Surgery
DX: R10.9 Unspecified abdominal pain (principal)
CPT/HCPCS: 36415; 80053; 85025

== ENCOUNTER 2024-12-21 07:46 | Outpatient (CLI) | payer MEDICARE, SELFPAY ==
--- NOTE | 2024-12-21 08:00 | CT_ITS ---
FINAL REPORT TECHNIQUE: Thin section axial images are obtained through the abdomen and pelvis after intravenous contrast. Reconstruction images were obtained from the axial data. Exam was performed using dose reduction techniques. CLINICAL HISTORY: abdominal pain, hx of gallstones FINDINGS: LUNG BASES: There is a 4 mm subpleural left lower lobe pulmonary nodule on series 2, image 21. Heart size is normal. LIVER: Homogeneous. No focal lesion. GALLBLADDER/BILIARY SYSTEM: Gallbladder is present. Gallstone noted in the gallbladder. No biliary dilatation. SPLEEN: Unremarkable. PANCREAS: Unremarkable. ADRENALS: Unremarkable. KIDNEYS/URETERS/BLADDER: No hydronephrosis, renal mass, or renal stone. Wall thickening of the urinary bladder is noted. The bladder is incompletely distended but the prostate is enlarged and there is likely a component of chronic outlet obstruction. GI TRACT: No small bowel obstruction or dilatation. Normal appendix. No acute colon abnormality. There is diverticulosis without evidence of diverticulitis. PELVIC ORGANS: Enlarged prostate. LYMPH NODES/RETROPERITONEUM/MESENTERY: No lymphadenopathy. No abdominal aortic aneurysm. ABDOMINAL WALL: There are bilateral fat-containing inguinal hernias. FREE FLUID: No ascites. BONES: No acute osseous abnormality. IMPRESSION: 1. Gallstones. 2. Mildly enlarged prostate. There is likely component of chronic outlet obstruction. Authenticated and ERN
[2024-12-21] MEDS: BARIUM SULFATE(READI-CAT2);450ML BOTTLE 450 ML PO (08:11)
[2024-12-21] MEDS: IOPAMIDOL-370 (76%);100ML BOTTLE 80 ML IV (08:11)
[2024-12-21] MEDS: SODIUM CHLORIDE 0.9% 10ML SYR (RAD ONLY) 10 ML IV (08:11)
== END 2024-12-21 23:59 | disposition home or self-care (01) ==
LOC: RAD 07:47
PROVIDERS: PCP Family Medicine; Visit Provider Surgery
DX: K80.20 Calculus of gallbladder without cholecystitis without obstruction (principal); N40.0 Benign prostatic hyperplasia without lower urinary tract symptoms; R93.5 Abnormal findings on diagnostic imaging of other abdominal regions, including retroperitoneum
CPT/HCPCS: 74177; Q9967